=== PATIENT | female | born 1985 | race Caucasian/White ===

== ENCOUNTER 2017-09-21 17:01 | Inpatient (IN) | payer OTHER ==
[~2017-09-21] VITALS: Ht 154.9 cm; Wt 66.1 kg
[~2017-09-21 17:01] MED LIST: AZIT250T6 PO; GENT5DRO28 BOTH EYES; IBUP-1542 PO
--- NOTE | 2017-09-21 19:37 | ERD ---
ER Documentation Chief Complaint Chief Complaint BIB SELF C/O RIGHT SIDED NUMBNESS SINCE TODAY MORNING. HPI 32-year-old female presents to emergency department for complaints of numbness of over the body more than the right side it started this morning. Patient complains of neck stiffness and upper back stiffness. Patient denies any headache. Patient denies any dizziness. Patient denies any head trauma. Patient denies any changes in balance or memory. Patient denies any blurry vision. ROS All systems reviewed and are negative except as per history of present illness. Medications Home Meds Active Scripts Ibuprofen* (Motrin*) 600 Mg Tab, 600 MG PO Q6, #20 TAB Prov:RODOLFO COOK MD 05/02/16 Azithromycin* (Azithromycin*) 250 Mg Tablet, 250 MG PO DAILY, #6 TAB take 2 tab po on day 1, then 1 tab po on day 2-5 Prov:NEGRITO SINCLAIR PA-C 04/18/15 Gentamicin Sulfate* (Gentamicin Sulfate* Ophth) 0.3% - 5 Ml Drops, 1 DROP BOTH EYES Q4 for 7 Days, EA Prov:NEGRITO SINCLAIR PA-C 04/18/15 Allergies Allergies: Coded Allergies: No Known Allergy (Unverified , 08/30/16) PMhx/Soc Medical and Surgical Hx: pt denies Medical Hx, pt denies Surgical Hx History of Surgery: No Anesthesia Reaction: No Hx Neurological Disorder: No Hx Respiratory Disorders: No Hx Cardiac Disorders: No Hx Psychiatric Problems: No Hx Miscellaneous Medical Probl: No Hx Alcohol Use: No Hx Substance Use: No Hx Tobacco Use: No Smoking Status: Never smoker FmHx Family History: No coronary disease, No diabetes, No other Physical Exam Vitals Vital Signs Date Time Temp Pulse Resp B/P Pulse Ox O2 Delivery O2 Flow Rate FiO2 09/21/17 23:56 98.2 88 18 121/77 98 Room Air 09/21/17 17:08 98.9 99 18 132/74 100 Physical Exam GENERAL: The patient is well developed and appropriate for usual state of health, in no apparent distress. CHEST: Clear to auscultation bilaterally. There are no rales, wheezes or rhonchi. HEART: Regular rate and rhythm. No murmurs, clicks, rubs or gallops. No S3 or S4. ABDOMEN: Soft, nontender and nondistended. Good bowel sounds. No rebound or guarding. No gross peritonitis. No gross organomegaly or masses. No Macario sign or McBurney point tenderness. BACK: No midline or flank tenderness. EXTREMITIES: Equal pulses bilaterally. There is no peripheral clubbing, cyanosis or edema. No focal swelling or erythema. Full range of motion. Grossly neurovascularly intact. NEURO: Alert and oriented. Cranial nerves 2-12 intact. Motor strength in all 4 extremities with 5/5 strength. Sensation grossly intact. Normal speech and gait. Negative Romberg sign. Negative pronator drift. SKIN: There is no apparent rash or petechia. The skin is warm and dry. HEMATOLOGIC AND LYMPHATIC: There is no evidence of excessive bruising or lymphedema. No gross cervical, axillary, or inguinal lymphadenopathy. Result Diagram: 09/21/17 2100 09/21/17 2100 Results 24 hrs Laboratory Tests Test 09/21/17 19:30 09/21/17 21:00 Bedside Glucose 100mg/dL White Blood Count 8.510^3/ul Red Blood Count 4.4810^6/ul Hemoglobin 13.7g/dl Hematocrit 40.8% Mean Corpuscular Volume 91.1fl Mean Corpuscular Hemoglobin 30.6pg Mean Corpuscular Hemoglobin Concent 33.6g/dl Red Cell Distribution Width 12.7% Platelet Count 63309^3/UL Mean Platelet Volume 9.7fl Neutrophils % 51.9% Lymphocytes % 39.5% Monocytes % 6.9% Eosinophils % 1.2% Basophils % 0.4% Nucleated Red Blood Cells % 0.0/100WBC Neutrophils # 4.410^3/ul Lymphocytes # 3.410^3/ul Monocytes # 0.610^3/ul Eosinophils # 0.110^3/ul Basophils # 0.010^3/ul Nucleated Red Blood Cells # 0.010^3/ul Sodium Level 142mmol/L Potassium Level 4.2mmol/L Chloride Level 106mmol/L Carbon Dioxide Level 27mmol/L Anion Gap 13 Blood Urea Nitrogen 15mg/dl Creatinine 0.61mg/dl Glucose Level 97mg/dl Calcium Level 9.9mg/dl Phosphorus Level 4.1mg/dl Magnesium Level 1.9mg/dl Total Bilirubin 0.5mg/dl Direct Bilirubin 0.00mg/dl Indirect Bilirubin 0.5mg/dl Aspartate Amino Transf (AST/SGOT) 35IU/L Alanine Aminotransferase (ALT/SGPT) 52IU/L Alkaline Phosphatase 79IU/L Total Protein 8.4g/dl Albumin 4.7g/dl Globulin 3.70g/dl Albumin/Globulin Ratio 1.27 Current Medications Medications (Trade) Dose Ordered Sig/Juan Route PRN Reason Start Time Stop Time Status Last Admin Dose Admin Ondansetron HCl (Zofran Inj) 4 mg BRIDGE ORDER PRN IV NAUSEA AND/OR VOMITING 09/22/17 01:00 09/23/17 00:59 Acetaminophen (Tylenol Tab) 650 mg ER BRIDGE PRN PO MILD PAIN/FEVER 09/22/17 01:00 09/23/17 00:59 PROCEDURE: CT Brain without contrast. CLINICAL INDICATION: Numbness TECHNIQUE: Routine CT scan of the brain was performed on a high resolution multi detector scanner without intravenous contrast. One or more of the following dose reduction techniques were used: Automated exposure control; Adjustment of the mA and/or kV according to patient size; Use of iterative reconstruction technique. CTDI = 44 mGy. DLP = 720 mGy-cm. DICOM images are available. COMPARISON: CT BRAIN 08/30/2016 FINDINGS: Hemorrhage: No evidence of intracranial hemorrhage. Acute ischemic changes: No evidence of acute ischemic changes. Mass effect: None. Parenchymal volume: Within normal limits for age. Ventricular system: Concordant with parenchymal volume. Parenchymal changes : Asymmetric low attenuation changes are present involving the left parietal white matter which are new since the prior examination. Extracranial soft tissues: Unremarkable. Calvarium: No fractures. Paranasal sinuses: Visualized paranasal sinuses are clear. Mastoid air cells: Visualized mastoid air cells are clear. IMPRESSION: Asymmetric new low attenuation changes are present involving the left parietal white matter which are uncertain etiology and chronicity although new since the previous examination dated 08/30/2016. MRI of the brain with and without contrast is recommended for further evaluation. RPTAT: AADD .Jose Miguel Smith MD, MD Date Time Electronically viewed and signed by .Jose Miguel Smith MD, on 09/21/2017 20:43 .B/ CC: PETER GIRARD QUIRK SANDER I discussed this case with attending physician Dr Blackburn, recommended contact urology specialist, was able to talk to Dr.S Wang, amended MRI with and without contrast of the brain for further evaluation. PROCEDURE: MR Brain with and without contrast. CLINICAL INDICATION: Numbness. Dizziness.. TECHNIQUE: MRI brain without contrast was performed on a high-field MRI system. Sequences included sagittal T1 and FLAIR, axial T1, FLAIR, T2, diffusion and coronal GRE. After the administration of 10 cc Magnevist IV contrast material, axial and coronal T1-weighted images were performed. DICOM images are available. COMPARISON: CT brain 08/30/2016, 09/21/2017 . FINDINGS: There is 11.3 x 11.4 mm rounded discrete subcortical lesion in the left parietal white matter, mildly hypointense on T1-weighted images, heterogeneously hyperintense on T2-weighted images. There is minimal peripheral enhancement postcontrast. There is a small amount of surrounding subcortical vasogenic edema. On diffusion weighted images there is heterogeneous hypointensity with surrounding hyperintensity. There is no significant mass effect. There is a more homogeneous 6.7 x 5.6 mm well-defined lesion in the posterior left frontal lobe periventricular white matter just above the body lateral ventricles, poorly seen on T1-weighted images, homogeneously hyperintense on T2-weighted images and without signal abnormalities on diffusion weighted images. An additional slightly more ill-defined lesion in the mesial left temporal lobe cortex adjacent to the atria the left ventricle on FLAIR and T2-weighted images is present, also not well visualized on T1- weighted images with and without signal abnormality on diffusion weighted images. Neither the latter to lesions demonstrate enhancement. The ventricles and sulci are otherwise normal in size and configuration.. There is no midline shift. There are no other focal parenchymal abnormalities. There is no acute stroke on diffusion weighted images. There is no intracranial hemorrhage or abnormal extra-axial fluid collection. Flow voids are noted in the major intracranial arteries. There is normal signal intensity in the major dural venous sinuses. Visualized paranasal sinuses are clear. Foramen magnum is unremarkable. IMPRESSION: 1. Three distinct lesions in the left cerebral hemisphere. 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 Other lesions in the right frontal periventricular white matter and left temporal lobe cortex are smaller although still consistent with demyelination or ADEM. 2. No acute stroke. 3. No evidence for intracranial hemorrhage. Findings reported to AGUSTIN Girard on 09/21/2017 11:29:58 PM. RPTAT: HMVK .Shin Grace MD, MD Date Time Electronically viewed and signed by .Shin Grace MD, on 09/21/2017 23:33 .K/ CC: PETER GIRARD QUIRK SANDER Procedures/MDM Medical decision making: Patient symptoms most likely is consistent with a possible demyelinating disease versus acute disseminated encephalomyelitis (ADEM ) as seen in the MRI of the brain, there is 3 distinct lesions noted in the left cerebral hemisphere consistent with this. No acute stroke symptoms noted. No symptoms of any acute intracranial hemorrhage. I discussed this case with my attending physician, Dr. Blackburn, we both agree patient needs to be admitted to the hospital for further evaluation and management. I discussed this with the patient was advised with plan at this time. Patient is stable at this time. Departure Diagnosis: Primary Impression: Paresthesia Additional Impression: Brain lesion Condition: Fair PETER GIRARD NP Sep 21, 2017 19:37
--- NOTE | 2017-09-21 20:43 | RADRPT ---
PROCEDURE: CT Brain without contrast. CLINICAL INDICATION: Numbness TECHNIQUE: Routine CT scan of the brain was performed on a high resolution multi detector scanner without intravenous contrast. One or more of the following dose reduction techniques were used: Auto mated exposure control; Adjustment of the mA and/or kV according to patient size; Use of iterative r econstruction technique. CTDI = 44 mGy. DLP = 720 mGy-cm. DICOM images are available. COMPARISON: CT BRAIN 08/30/2016 FINDINGS: Hemorrhage: No evidence of intracranial hemorrhage. Acute ischemic changes: No evidence of acute ischemic changes. Mass effect: None. Parenchymal volume: Within normal limits for age. Ventricular system: Concordant with parenchymal volume. Parenchymal changes : Asymmetric low attenuation changes are present involving the left parietal whi te matter which are new since the prior examination. Extracranial soft tissues: Unremarkable. Calvarium: No fractures. Paranasal sinuses: Visualized paranasal sinuses are clear. Mastoid air cells: Visualized mastoid air cells are clear. IMPRESSION: Asymmetric new low attenuation changes are present involving the left parietal white matter which ar e uncertain etiology and chronicity although new since the previous examination dated 08/30/2016. MR I of the brain with and without contrast is recommended for further evaluation. RPTAT: AADD .Jose Miguel Smith MD, MD Date Time Electronically viewed and signed by .Jose Miguel Smith MD, MD on 09/21/2017 20:43 .B/
[2017-09-21 21:18] LABS: BASOPHILS % 0.4 % (0.0-2.0); EOSINOPHILS # 0.1 10^3/ul (0.0-0.5); EOSINOPHILS % 1.2 % (0.0-7.0); HEMATOCRIT 40.8 % (37.0-47.0); HEMOGLOBIN 13.7 g/dl (12.0-16.0); LYMPHOCYTES # 3.4 10^3/ul (0.8-2.9); LYMPHOCYTES % 39.5 % (15.0-51.0); MEAN CORPUSCULAR HEMOGLOBIN 30.6 pg (29.0-33.0); MEAN CORPUSCULAR HGB CONC 33.6 g/dl (32.0-37.0); MEAN CORPUSCULAR VOLUME 91.1 fl (82.0-101.0); MEAN PLATELET VOLUME 9.7 fl (7.4-10.4); MONOCYTE # 0.6 10^3/ul (0.3-0.9); MONOCYTES % 6.9 % (0.0-11.0); NEUTROPHIL # 4.4 10^3/ul (1.6-7.5); NEUTROPHILS % 51.9 % (39.0-77.0); PLATELET COUNT 268 10^3/UL (140-415); RED BLOOD COUNT 4.48 10^6/ul (4.20-5.40); RED CELL DISTRIBUTION WIDTH 12.7 % (11.5-14.5); WHITE BLOOD COUNT 8.5 10^3/ul (4.8-10.8)
[2017-09-21 21:35] LABS: ALBUMIN 4.7 g/dl (3.3-4.9); ALBUMIN/GLOBULIN RATIO 1.27; BILIRUBIN,INDIRECT 0.5 mg/dl (0-1.1); BILIRUBIN,TOTAL 0.5 mg/dl (0.2-1.3); CALCIUM 9.9 mg/dl (8.4-10.2); CREATININE 0.61 mg/dl (0.44-1.00); MAGNESIUM 1.9 mg/dl (1.7-2.5); PHOSPHORUS 4.1 mg/dl (2.5-4.9); POTASSIUM 4.2 mmol/L (3.5-5.1); TOTAL PROTEIN 8.4 g/dl (6.1-8.1)
--- NOTE | 2017-09-21 23:33 | RADRPT ---
AMENDMENT: 09/22/2017 1:22:45 AM Shin Grace Md ADDENDUM: There is an 8 mm extra-axial rounded mass at the periphery of the left Sylvian fissure abutting the calvarium. There is marked homogenous enhancement after IV contrast and no mass effect. Appearance is most consistent with a venous varix, less likely a mass such as a meningioma. PROCEDURE: MR Brain with and without contrast. CLINICAL INDICATION: Numbness. Dizziness.. TECHNIQUE: MRI brain without contrast was performed on a high-field MRI system. Sequences include d sagittal T1 and FLAIR, axial T1, FLAIR, T2, diffusion and coronal GRE. After the administration of 10 cc Magnevist IV contrast material, axial and coronal T1-weighted images were performed. DICOM images are available. COMPARISON: CT brain 08/30/2016, 09/21/2017 . FINDINGS: There is 11.3 x 11.4 mm rounded discrete subcortical lesion in the left parietal white matter, mildl y hypointense on T1-weighted images, heterogeneously hyperintense on T2-weighted images. There is mi nimal peripheral enhancement postcontrast. There is a small amount of surrounding subcortical vasoge jeanie edema. On diffusion weighted images there is heterogeneous hypointensity with surrounding hyperi ntensity. There is no significant mass effect. There is a more homogeneous 6.7 x 5.6 mm well-defined lesion in the posterior left frontal lobe periventricular white matter just above the body lateral ventricles, poorly seen on T1-weighted images, homogeneously hyperintense on T2-weighted images and without signal abnormalities on diffusion weighted images. An additional slightly more ill-defined l esion in the mesial left temporal lobe cortex adjacent to the atria the left ventricle on FLAIR and T2-weighted images is present, also not well visualized on T1-weighted images with and without signal abnormality on diffusion weighted images. Neither the latter to lesions demonstrate enhanceme nt. The ventricles and sulci are otherwise normal in size and configuration.. There is no midline shift . There are no other focal parenchymal abnormalities. There is no acute stroke on diffusion weight ed images. There is no intracranial hemorrhage or abnormal extra-axial fluid collection. Flow void s are noted in the major intracranial arteries. There is normal signal intensity in the major dural venous sinuses. Visualized paranasal sinuses are clear. Foramen magnum is unremarkable. IMPRESSION: 1. Three distinct lesions in the left cerebral hemisphere. Largest lesion is in the left parietal s ubcortical white matter with a signal characteristics most consistent with a demyelinating disease v ersus acute disseminated encephalomyelitis (ADEM). Other lesions in the right frontal periventricul ar white matter and left temporal lobe cortex are smaller although still consistent with demyelinati on or ADEM. 2. No acute stroke. 3. No evidence for intracranial hemorrhage. Findings reported to AGUSTIN Bueno on 09/21/2017 11:29:58 PM. RPTAT: HMVK .Shin Grace MD, Date Time Electronically viewed and signed by .Shin Grace MD, on 09/22/2017 01:22 .K/
--- NOTE | 2017-09-22 00:06 | QN ---
Documentation Comment I was called regarding this patient. 32yo F presents with whole body numbness and tingling, more severe on the right. Symptoms were noted by patient this morning when she woke. Last normal time was not available. Patient previously had a similar episode 1 year ago, but symptoms were more prominent on the left side at that time. CT Head report indicates patient has a new parietal lesion compared to CT from 2016 and recommended MRI Brain. I recommended patient undergo MRI Brain with and without gadolinium, as differential diagnosis includes multiple sclerosis. I advised that this could not be done as an outpatient as a multiple sclerosis exacerbation would need to be treated with IV steroids. No further consult is requested. DOT EASTMAN Sep 22, 2017 00:06
--- NOTE | 2017-09-22 00:42 | EN ---
Date/Time of Note Date/Time of Note DATE: 09/22/17 TIME: 00:42 Event Note Medicine Medicine Event Note S: This patient was evaluated by me in conjunction with the PA. Briefly, this is a 32-year-old female with a history of previous transient neurologic issues, lost to follow-up previously who is presenting with 1 day of paresthesias right worse than left. She notes that this happened approximately a year ago and there were concerns on head imaging. She was referred to neurology for outpatient follow-up. However, the symptoms improved on their own and she never followed up. She returns today with recurrence of similar symptoms. ROS/PMH/PSH/SH/FH: Reviewed. Please see PA note for further detail. O: Vital signs reviewed Const: No apparent distress, well-developed, well-nourished Head: Normocephalic, Atraumatic Eyes: Normal Conjunctiva. ENT: Normal External Ears, Nose and Mouth. Neck: No meningismus. Resp: Symmetric chest wall salguero, no audible wheezes Cardio: Deferred Abd: Non distended Skin: No petechiae or rashes Back: Deferred Ext: No cyanosis, or edema Neur: Awake and alert. No facial droop. Normal strength. Sensation grossly intact. Psych: Normal mood and affect A: Paresthesias, Concern for MS vs. ADEM MDM: The patient's presentation warrants further investigation. LABS The patient's blood work was obtained and reviewed. The patient's CBC shows no leukocytosis and no left shift. The patient is afebrile and does not appear systemically ill. I do not suspect a systemic infection. The patient is not anemic today. The patient's platelet count is unremarkable. The patient's CMP shows no signs of metabolic or electrolyte emergencies. The patient has unremarkable renal and hepatic function testing. IMAGING CT Head Asymmetric new low attenuation changes are present involving the left parietal white matter which are uncertain etiology and chronicity although new since the previous examination dated 08/30/2016. MRI of the brain with and without contrast is recommended for further evaluation. Electronically viewed and signed by .Jose Miguel Smith MD, MD on 09/21/2017 20:43 MRI Head 1. Three distinct lesions in the left cerebral hemisphere. 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 Other lesions in the right frontal periventricular white matter and left temporal lobe cortex are smaller although still consistent with demyelination or ADEM. 2. No acute stroke. 3. No evidence for intracranial hemorrhage. Electronically viewed and signed by .Shin Grace MD, MD on 09/22/2017 01:22 TREATMENT/DISPOSITION After obtaining the CT of the head that demonstrated hypoattenuating lesions, tele-neurology was called to discuss the case. They did feel that an MRI of the head should be obtained this evening. This was done that demonstrated findings that were concerning with demyelinating disease such as MS versus acute disseminated encephalomyelitis. The tele-neurologist felt that the patient required admission for further evaluation by the in-house neurology physicians via consultation. The patient will also likely require steroids. At this time, I feel that the patient requires admission for further evaluation and management. The patient will be admitted to Panel in accordance with the patient's insurance. The patient was accepted by Dr. Hidalgo at 12:30AM on September 22, 2017. Disclaimer: Inadvertent spelling and grammatical errors are likely due to EHR/ dictation software use and do not reflect on the overall quality of patient care. Note that the electronic time recorded on this note does not necessarily reflect the actual time of the patient encounter. MIGUEL MARI MD Sep 22, 2017 00:42 MIGUEL MARI MD Sep 22, 2017 00:42
[2017-09-22] MEDS ORDERED: ACETAMINOPHEN 325 MG TAB PO PRN ×3 (01:00→02:30)
[2017-09-22] MEDS ORDERED: ONDANSETRON 4 MG INJ IV PRN ×2 (01:00→02:30)
[2017-09-22 01:09] VITALS: PULSE 82; TEMP 98.2
[2017-09-22 01:30] VITALS: BP 103/60; RESP 20; Ht 154.9 cm; Wt 66.1 kg
[2017-09-22] MEDS ORDERED: NACL 0.9% 3 ML SYG IV SCH (02:30)
[2017-09-22] MEDS ORDERED: SOD CHLORIDE 0.9% 1,000 ML IV ONE (05:00)
[2017-09-22 05:56] LABS: BASOPHILS % 0.6 % (0.0-2.0); EOSINOPHILS # 0.1 10^3/ul (0.0-0.5); EOSINOPHILS % 1.5 % (0.0-7.0); HEMATOCRIT 37.6 % (37.0-47.0); HEMOGLOBIN 12.7 g/dl (12.0-16.0); LYMPHOCYTES # 2.7 10^3/ul (0.8-2.9); LYMPHOCYTES % 37.2 % (15.0-51.0); MEAN CORPUSCULAR HEMOGLOBIN 30.3 pg (29.0-33.0); MEAN CORPUSCULAR HGB CONC 33.8 g/dl (32.0-37.0); MEAN CORPUSCULAR VOLUME 89.7 fl (82.0-101.0); MONOCYTE # 0.6 10^3/ul (0.3-0.9); MONOCYTES % 8.7 % (0.0-11.0); NEUTROPHIL # 3.7 10^3/ul (1.6-7.5); NEUTROPHILS % 51.9 % (39.0-77.0); PLATELET COUNT 270 10^3/UL (140-415); RED BLOOD COUNT 4.19 10^6/ul (4.20-5.40); RED CELL DISTRIBUTION WIDTH 13.2 % (11.5-14.5); WHITE BLOOD COUNT 7.1 10^3/ul (4.8-10.8)
[2017-09-22] MEDS ORDERED: PANTOPRAZOLE 40 MG INJ IV SCH (06:00)
[2017-09-22 06:31] LABS: ALBUMIN 4.2 g/dl (3.3-4.9); ALBUMIN/GLOBULIN RATIO 1.23; BILIRUBIN,INDIRECT 0.9 mg/dl (0-1.1); BILIRUBIN,TOTAL 0.9 mg/dl (0.2-1.3); CALCIUM 9.6 mg/dl (8.4-10.2); CHOL/HDL RATIO 3.8 RATIO; CREATININE 0.59 mg/dl (0.44-1.00); MAGNESIUM 1.9 mg/dl (1.7-2.5); POTASSIUM 3.9 mmol/L (3.5-5.1); TOTAL PROTEIN 7.6 g/dl (6.1-8.1)
[2017-09-22 06:50] LABS: THYROID STIMULATING HORMONE 3.19 MIU/L (0.465-4.680)
[2017-09-22 08:00] VITALS: BP 115/65; RESP 18
[2017-09-22] MEDS ORDERED: METHYLPRED. NA SUCC 1,000 MG in DEXTROSE 5% 50 ML IVPB SCH (09:00)
--- NOTE | 2017-09-22 09:58 | HP ---
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 MRI of the brain: Three distinct lesions in the left cerebral hemisphere. 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 Other lesions in the right frontal periventricular white matter and left temporal lobe cortex are smaller although still consistent with demyelination or ADEM. Current time will start the patient on Solu-Medrol 1000 mg every 24 hours x 5 days. Will consult neurology. Patient may need a lumbar tap for further diagnostic purposes. She also may need more imaging of the spine however we will defer further testing to neurology. 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 She states that she also feels slightly weak in her right upper extremity though she is able to move around she was unable to hold her phone up. She states that a similar yet more exacerbating episode happened approximately a year ago where she experienced numbness however also had problems ambulating. At that time the CAT scan was negative and she was sent home and advised to follow-up with a neurologist but she never was able to. Patient denies any headache. Patient denies any dizziness. Patient denies any head trauma. Patient denies any changes in her memory. Patient denies any blurry vision. Allergies: NKDA Medications: See HARLEY ALVAREZ Const: As per HPI Eyes : No pain discharge or redness or change in visual acuity ENT: No pain, sore throat, congestion, congestion, dysphagia or discharge Respiratory: No shortness of breath, cough, sputum, wheezing, or pleuritic pain Cardiovascular: No chest pain, palpitation, PND, or edema GI : no change in appetite, abdominal pain, nausea, vomiting, diarrhea, constipation, or change in the color his stool Genitourinary: No dysuria, hematuria, flank pain , discharge or CVA tenderness Musculoskeletal: No joint pain, back pain, neck pain, restricted range of motion in neck or joints Skin: No rash, bruising or hives Neuro: As per HPI Endocrine: No polyuria, polydipsia, temperature intolerance Psych: No hallucination, depression, anxiety or suicidal ideation PMH/Family/Social Past Medical History Endometriosis Past Surgical History Past Surgical Hx: no surgical history Family History Significant Family History: no pertinent family hx Social History Alcohol Use: none Smoking Status: Never smoker Drug Use: none Exam/Review of Systems Vital Signs Vitals Vital Signs Date Time Temp Pulse Resp B/P Pulse Ox O2 Delivery O2 Flow Rate FiO2 09/22/17 08:00 97.8 82 18 115/65 99 09/22/17 01:09 Room Air Intake and Output 09/21/17 09/21/17 09/22/17 14:59 22:59 06:59 Intake Total 240 ml Balance 240 ml Exam Exam General: It is a well-developed female in no acute distress HEENT: Atraumatic, normocephalic. The pupils are equal, round and reactive. Extraocular motor are intact Neck: Supple with full range of motion. No rigidity or meningismus Chest: Nontender Lungs: Clear to auscultation bilaterally no crackles rales or wheezing Heart: Normal S1-S2, Regular rhythm and rate. No murmur, S3, or S4 Abdomen: Soft , nontender, nondistended , bowel sounds are present. No guarding no rebound tenderness , No masses or organomegaly. No costovertebral temporal angle mass Extremities: Normal to inspection, no edema no cyanosis Neurologic: Normal mental status, speech normal, cranial nerves II through XII are intact, motor and sensory are intact, strength 5 out of 5 in bilateral upper and lower extremities, gait was not assessed. Additional Comments PROCEDURE: CT Brain without contrast. CLINICAL INDICATION: Numbness TECHNIQUE: Routine CT scan of the brain was performed on a high resolution multi detector scanner without intravenous contrast. One or more of the following dose reduction techniques were used: Automated exposure control; Adjustment of the mA and/or kV according to patient size; Use of iterative reconstruction technique. CTDI = 44 mGy. DLP = 720 mGy-cm. DICOM images are available. COMPARISON: CT BRAIN 08/30/2016 FINDINGS: Hemorrhage: No evidence of intracranial hemorrhage. Acute ischemic changes: No evidence of acute ischemic changes. Mass effect: None. Parenchymal volume: Within normal limits for age. Ventricular system: Concordant with parenchymal volume. Parenchymal changes : Asymmetric low attenuation changes are present involving the left parietal white matter which are new since the prior examination. Extracranial soft tissues: Unremarkable. Calvarium: No fractures. Paranasal sinuses: Visualized paranasal sinuses are clear. Mastoid air cells: Visualized mastoid air cells are clear. IMPRESSION: Asymmetric new low attenuation changes are present involving the left parietal white matter which are uncertain etiology and chronicity although new since the previous examination dated 08/30/2016. MRI of the brain with and without contrast is recommended for further evaluation. RPTAT: AADD .Jose Miguel Smith MD, MD Date Time Electronically viewed and signed by .Jose Miguel Smith MD, MD on 09/21/2017 20:43 .B/ CC: [facility] AMENDMENT: 09/22/2017 1:22:45 AM Shin Grace Md ADDENDUM: There is an 8 mm extra-axial rounded mass at the periphery of the left Sylvian fissure abutting the calvarium. There is marked homogenous enhancement after IV contrast and no mass effect. Appearance is most consistent with a venous varix, less likely a mass such as a meningioma. PROCEDURE: MR Brain with and without contrast. CLINICAL INDICATION: Numbness. Dizziness.. TECHNIQUE: MRI brain without contrast was performed on a high-field MRI system. Sequences included sagittal T1 and FLAIR, axial T1, FLAIR, T2, diffusion and coronal GRE. After the administration of 10 cc Magnevist IV contrast material, axial and coronal T1-weighted images were performed. DICOM images are available. COMPARISON: CT brain 08/30/2016, 09/21/2017 . FINDINGS: There is 11.3 x 11.4 mm rounded discrete subcortical lesion in the left parietal white matter, mildly hypointense on T1-weighted images, heterogeneously hyperintense on T2-weighted images. There is minimal peripheral enhancement postcontrast. There is a small amount of surrounding subcortical vasogenic edema. On diffusion weighted images there is heterogeneous hypointensity with surrounding hyperintensity. There is no significant mass effect. There is a more homogeneous 6.7 x 5.6 mm well-defined lesion in the posterior left frontal lobe periventricular white matter just above the body lateral ventricles, poorly seen on T1-weighted images, homogeneously hyperintense on T2-weighted images and without signal abnormalities on diffusion weighted images. An additional slightly more ill-defined lesion in the mesial left temporal lobe cortex adjacent to the atria the left ventricle on FLAIR and T2-weighted images is present, also not well visualized on T1- weighted images with and without signal abnormality on diffusion weighted images. Neither the latter to lesions demonstrate enhancement. The ventricles and sulci are otherwise normal in size and configuration.. There is no midline shift. There are no other focal parenchymal abnormalities. There is no acute stroke on diffusion weighted images. There is no intracranial hemorrhage or abnormal extra-axial fluid collection. Flow voids are noted in the major intracranial arteries. There is normal signal intensity in the major dural venous sinuses. Visualized paranasal sinuses are clear. Foramen magnum is unremarkable. IMPRESSION: 1. Three distinct lesions in the left cerebral hemisphere. 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 Other lesions in the right frontal periventricular white matter and left temporal lobe cortex are smaller although still consistent with demyelination or ADEM. 2. No acute stroke. 3. No evidence for intracranial hemorrhage. Findings reported to AGUSTIN Bueno on 09/21/2017 11:29:58 PM. RPTAT: HMVK .Shin Grace MD, Date Time Electronically viewed and signed by .Shin Grace MD, on 09/22/2017 01:22 .K/ CC: [facility] Labs Result Diagram: 09/22/1744609/22/17446 Medications Medications Current Medications Acetaminophen (Tylenol Tab) 650 mg Q6H PRN PO PAIN AND OR ELEVATED TEMP Last administered on 09/22/17 02:17; Admin Dose 650 MG; Start 09/22/17 at 02:30 Ondansetron HCl (Zofran Inj) 4 mg Q6H PRN IV NAUSEA AND/OR VOMITING; Start at 02:30 Acetaminophen (Tylenol Tab) 650 mg Q6H PRN PO PAIN LEVEL 1-3 OR FEVER; Start 09/22/17 at 02:30 Pantoprazole 40 mg 40 mg DAILY@06 IV Last administered on 09/22/17 05:18; Admin Dose 40 MG; Start 09/22/17 at 06:00 Methylprednisolone Sodium Succinate/ Dextrose (Solu-Medrol/D5W) 50 ml @ 100 mls /hr DAILY IVPB Last administered on 09/22/17 08:53; Admin Dose 100 MLS/HR; Start 09/22/17 at 09:00; Stop 09/27/17 at 08:59 Influenza Virus Vaccine (Fluzone) 0.5 ml ONCE ONCE IM* ; Start 09/23/17 at 09: 00; Stop 09/23/17 at 09:01 MARCUS ROBERT Sep 22, 2017 09:58
--- NOTE | 2017-09-22 13:22 | CONS ---
Date/Time of Note Date/Time of Note DATE: 09/22/17 TIME: 13:14 Assessment/Plan Assessment/Plan Chief Complaint/Hosp Course 32 yo female with history of prior left sided numbness lasting several weeks admitted with UE parasthesias and right sided weakness. MRI shows 3 lesions left parietal subcortical region, periventricular region. right frontal and left temporal There evidence of dissemination of lesions in space per Tovar's criteria. Reviewed imaging with patient I suspect she has multiple sclerosis. Recommendations: IV Steroids may dose up to 3 days 1 g Solumedrol, protonix MRI Cervical and Thoracic Spine with and without contrast Lumbar Puncture- CSF Cell Count, Protein, Glucose, Oligoclonal Bands, Paired IgG Index, GIO, CSF cultures PT/OT eval DVT ppx will follow advised patient she will require outpatient neurology follow up to begin disease modifying therapy to help prevent further relapses Problems: Consultation Date/Type/Reason Admit Date/Time Sep 22, 2017 at 00:41 Date of Consultation: Sep 22, 2017 Type of Consultation: Neurology Reason for Consultation evaluation for MS Referring Provider: MARCUS ROBERT Hx of Present Illness 32 yo female with history of left sided weakness over a year ago that had lasted 3 weeks and resolved, p/w numbness throughout her body and tingling parasthesias in UE and right arm and leg weakness started yesterday morning upon awakening. When she had prior sx over a year ago she came to the ER had a noncontrast Head CT and was sent home to fu with PCP, never followed up. She denies visual c/o, no facial numbness, no falls or balance issues, no bowel bladder issues. MRI suggestive of demyelinating process, She received 1 dose of Solumedrol with no change in her sx. parasthesias right sided numbness Past Medical History Medical History: no pertinent history Past Surgical History Past Surgical Hx: no surgical history Social History Alcohol Use: none Smoking Status: Never smoker Drug Use: none Exam/Review of Systems Vital Signs Vitals Vital Signs Date Time Temp Pulse Resp B/P Pulse Ox O2 Delivery O2 Flow Rate FiO2 09/22/17 08:00 97.8 82 18 115/65 99 09/22/17 01:09 Room Air Intake and Output 09/21/17 09/21/17 09/22/17 14:59 22:59 06:59 Intake Total 240 ml Balance 240 ml Exam Constitutional: alert, oriented, well developed Neurological: HAND FORMER II-XII intact, DTR's symmetric (right arm drift and right leg drift mild 5-/5 weakness decreased sensation to right arm and leg), nl mental status, nl speech Results Result Diagram: 09/22/177 09/22/17446 Results 24 hrs Laboratory Tests Test 09/21/17 19:30 09/21/17 21:00 09/22/17 04:47 Bedside Glucose 100 White Blood Count 8.5 7.1 Red Blood Count 4.48 4.19 L Hemoglobin 13.7 12.7 Hematocrit 40.8 37.6 Mean Corpuscular Volume 91.1 89.7 Mean Corpuscular Hemoglobin 30.6 30.3 Mean Corpuscular Hemoglobin Concent 33.6 33.8 Red Cell Distribution Width 12.7 13.2 Platelet Count 268 270 Mean Platelet Volume 9.7 10.0 Neutrophils % 51.9 51.9 Lymphocytes % 39.5 37.2 Monocytes % 6.9 8.7 Eosinophils % 1.2 1.5 Basophils % 0.4 0.6 Nucleated Red Blood Cells % 0.0 0.0 Neutrophils # 4.4 3.7 Lymphocytes # 3.4 H 2.7 Monocytes # 0.6 0.6 Eosinophils # 0.1 0.1 Basophils # 0.0 0.0 Nucleated Red Blood Cells # 0.0 0.0 Sodium Level 142 143 Potassium Level 4.2 3.9 Chloride Level 106 105 Carbon Dioxide Level 27 29 Anion Gap 13 13 Blood Urea Nitrogen 15 16 Creatinine 0.61 0.59 Glucose Level 97 91 Calcium Level 9.9 9.6 Phosphorus Level 4.1 Magnesium Level 1.9 1.9 Total Bilirubin 0.5 0.9 Direct Bilirubin 0.00 0.00 Indirect Bilirubin 0.5 0.9 Aspartate Amino Transf (AST/SGOT) 35 31 Alanine Aminotransferase (ALT/SGPT) 52 46 Alkaline Phosphatase 79 59 Total Protein 8.4 H 7.6 Albumin 4.7 4.2 Globulin 3.70 H 3.40 H Albumin/Globulin Ratio 1.27 1.23 Hemoglobin A1c 5.6 Triglycerides Level 88 Cholesterol Level 183 LDL Cholesterol, Calculated 118 HDL Cholesterol 47 Cholesterol/HDL Ratio 3.8 Thyroid Stimulating Hormone (TSH) 3.190 Medications Medications Current Medications Acetaminophen (Tylenol Tab) 650 mg Q6H PRN PO PAIN AND OR ELEVATED TEMP Last administered on 09/22/17 02:17; Admin Dose 650 MG; Start 09/22/17 at 02:30 Ondansetron HCl (Zofran Inj) 4 mg Q6H PRN IV NAUSEA AND/OR VOMITING; Start at 02:30 Acetaminophen (Tylenol Tab) 650 mg Q6H PRN PO PAIN LEVEL 1-3 OR FEVER; Start 09/22/17 at 02:30 Pantoprazole 40 mg 40 mg DAILY@06 IV Last administered on 09/22/17 05:18; Admin Dose 40 MG; Start 09/22/17 at 06:00 Methylprednisolone Sodium Succinate/ Dextrose (Solu-Medrol/D5W) 50 ml @ 100 mls /hr DAILY IVPB Last administered on 09/22/17 08:53; Admin Dose 100 MLS/HR; Start 09/22/17 at 09:00; Stop 09/27/17 at 08:59 Influenza Virus Vaccine (Fluzone) 0.5 ml ONCE ONCE IM* ; Start 09/23/17 at 09: 00; Stop 09/23/17 at 09:01 SANTI BEAULIEU MD Sep 22, 2017 13:22
[2017-09-22 14:00] VITALS: BP 121/73; RESP 16
[2017-09-22 15:52] LABS: INR 1.02; PROTIME 13.4 Sec (12.2-14.2)
[2017-09-22 15:53] LABS: PARTIAL THROMBOPLASTIN TIME 28.8 Sec (25.0-35.0)
--- NOTE | 2017-09-22 18:02 | PN ---
Date/Time of Note Date/Time of Note DATE: 09/22/17 TIME: 17:58 Assessment/Plan VTE Prophylaxis VTE Prophylaxis Intervention: SCD's Lines/Catheters IV [facility]from [facility] Saline Lock Urinary Cath still in place: No Assessment/Plan Assessment/Plan 1. Left sided numbness secondary to demyelinating disease - Neurology on board and recommendations appreciated. Suspecting MS and recommending MRI Cervical and Thoracic Spine with and without contrast - Lumbar Puncture- CSF Cell Count, Protein, Glucose, Oligoclonal Bands, Paired IgG Index, GIO, CSF cultures - Solumedrol 1gm x3 - PT/OT - Will require outpatient neurology follow up to begin disease modifying therapy to help prevent further relapses 2. endometriosis - Stable, follow-up as an outpatient with DIRECTOR GIFT 3. Disposition - Awaiting results of imaging and LP - PT/OT evaluation Subjective 24 Hr Interval Summary Free Text/Dictation Patient still experiencing worsening numbness on left side of body which she feels worsens since she is laying in bed. No new complaints. Exam/Review of Systems Vital Signs Vitals Vital Signs Date Time Temp Pulse Resp B/P Pulse Ox O2 Delivery O2 Flow Rate FiO2 09/22/17 08:00 97.8 82 18 115/65 99 09/22/17 01:09 Room Air Intake and Output 09/21/17 09/21/17 09/22/17 14:59 22:59 06:59 Intake Total 240 ml Balance 240 ml Exam General: in no acute distress HEENT: Atraumatic, normocephalic. The pupils are equal, round and reactive. Extraocular motor are intact Neck: Supple with full range of motion Lungs: Clear to auscultation bilaterally no crackles rales or wheezing Heart: Normal S1-S2, Regular rhythm and rate. No murmur, S3, or S4 Abdomen: Soft , nontender, nondistended , bowel sounds are present. No guarding no rebound tenderness , Extremities: Normal to inspection, no edema no cyanosis Neurologic: Normal mental status, speech normal, cranial nerves II through XII are intact, motor and sensory are intact, strength 5 out of 5 in bilateral upper and lower extremities, Results Result Diagram: 09/22/17 0447 09/22/17 0447 Results 24 hrs Laboratory Tests Test 09/21/17 19:30 09/21/17 21:00 09/22/17 04:47 09/22/17 15:00 Bedside Glucose 100 White Blood Count 8.5 7.1 Red Blood Count 4.48 4.19 L Hemoglobin 13.7 12.7 Hematocrit 40.8 37.6 Mean Corpuscular Volume 91.1 89.7 Mean Corpuscular Hemoglobin 30.6 30.3 Mean Corpuscular Hemoglobin Concent 33.6 33.8 Red Cell Distribution Width 12.7 13.2 Platelet Count 268 270 Mean Platelet Volume 9.7 10.0 Neutrophils % 51.9 51.9 Lymphocytes % 39.5 37.2 Monocytes % 6.9 8.7 Eosinophils % 1.2 1.5 Basophils % 0.4 0.6 Nucleated Red Blood Cells % 0.0 0.0 Neutrophils # 4.4 3.7 Lymphocytes # 3.4 H 2.7 Monocytes # 0.6 0.6 Eosinophils # 0.1 0.1 Basophils # 0.0 0.0 Nucleated Red Blood Cells # 0.0 0.0 Sodium Level 142 143 Potassium Level 4.2 3.9 Chloride Level 106 105 Carbon Dioxide Level 27 29 Anion Gap 13 13 Blood Urea Nitrogen 15 16 Creatinine 0.61 0.59 Glucose Level 97 91 Calcium Level 9.9 9.6 Phosphorus Level 4.1 Magnesium Level 1.9 1.9 Total Bilirubin 0.5 0.9 Direct Bilirubin 0.00 0.00 Indirect Bilirubin 0.5 0.9 Aspartate Amino Transf (AST/SGOT) 35 31 Alanine Aminotransferase (ALT/SGPT) 52 46 Alkaline Phosphatase 79 59 Total Protein 8.4 H 7.6 Albumin 4.7 4.2 Globulin 3.70 H 3.40 H Albumin/Globulin Ratio 1.27 1.23 Hemoglobin A1c 5.6 Triglycerides Level 88 Cholesterol Level 183 LDL Cholesterol, Calculated 118 HDL Cholesterol 47 Cholesterol/HDL Ratio 3.8 Thyroid Stimulating Hormone (TSH) 3.190 Prothrombin Time 13.4 Prothrombin Time Ratio 1.0 INR International Normalized Ratio 1.02 Activated Partial Thromboplast Time 28.8 Medications Medications Current Medications Ondansetron HCl (Zofran Inj) 4 mg Q6H PRN IV NAUSEA AND/OR VOMITING; Start at 02:30 Acetaminophen (Tylenol Tab) 650 mg Q6H PRN PO PAIN LEVEL 1-3 OR FEVER; Start 09/22/17 at 02:30 Influenza Virus Vaccine 0.5 ml 0.5 ml ONCE ONCE IM* ; Start 09/23/17 at 09:00; Stop 09/23/17 at 09:01 Methylprednisolone Sodium Succinate/ Dextrose (Solu-Medrol/D5W) 50 ml @ 100 mls /hr DAILY IVPB ; Start 09/23/17 at 09:00; Stop 09/25/17 at 08:59 Pantoprazole (Protonix Tab) 40 mg DAILY@06 PO ; Start 09/23/17 at 06:00 EVANGELIST ESPAÑA MD Sep 22, 2017 18:02
[2017-09-22 20:00] VITALS: BP 110/65; RESP 17; RESP 18
[2017-09-22] MEDS ORDERED: ZOLPIDEM 5 MG TAB PO ONE (21:54)
--- NOTE | 2017-09-22 22:26 | RADRPT ---
PROCEDURE: MRI CERVICAL SPINE WITH CONTRAST CLINICAL INDICATION: 32-year-old female with dizziness and right-sided numbness. The patient had a n abnormal MRI of the brain suggesting demyelinating process. TECHNIQUE: An MRI of the cervical spine was performed on a GE Signa HDxt 3T scanner utilizing the following sequences: Sagittal T1, sagittal T2, sagittal STIR, axial T2 and axial T1 images. Followi ng this, axial T1 with accentuation and sagittal T1-weighted images were obtained after the administ ration of 10 cc of Magnevist contrast material. The images reviewed on a PACS workstation. COMPARISON: MRI brain September 21, 2017. FINDINGS: There is straightening of the normal cervical lordosis. The cervical vertebral bodies and disk spac es have normal heights, signal intensities and anatomic alignment. At C2-3 the disc space has a normal appearance. There is no significant central or foraminal stenosi s. At C3-4 there is a mild posterior disk-osteophyte complex projecting approximately 2 mm beyond the p osterior margin. There is no significant foraminal stenosis. At C4-5 there is a mild posterior disk-osteophyte complex projecting approximately 2 mm beyond the p osterior margin. There are mild right uncovertebral degenerative changes resulting in mild right for aminal stenosis. At C5-6 there is a mild posterior disk-osteophyte complex projecting approximately 2 mm beyond the p osterior margin. There are mild bilateral uncovertebral degenerative changes resulting in minimal bi lateral foraminal stenosis. At C6-7 there is minimal posterior disk-osteophyte complex projecting 1 mm beyond the posterior rakan in. There are mild bilateral uncovertebral degenerative changes without significant foraminal stenos is. At C7-T1 the disc space has a normal appearance. There is no significant central or foraminal stenos is. The cervical cord has a normal contour and signal intensity throughout. There is no evidence for ab normal enhancement. There is no evidence for cord compression. IMPRESSION: 1. Straightening of the normal cervical lordosis. 2. Minimal cervical spondylosis. 3. No MR evidence for demyelinating disease within the cervical cord. .Ezequiel Brown MD, MD Date Time Electronically viewed and signed by .Ezequiel Brown MD, on 09/22/2017 22:26 .Regine/
--- NOTE | 2017-09-22 22:33 | RADRPT ---
PROCEDURE: MRI THORACIC SPINE WITH CONTRAST CLINICAL INDICATION: 32-year-old female with dizziness and bilateral extremity paresthesias. The pa tient had an abnormal MRI of the brain suggesting demyelinating process. TECHNIQUE: An MRI of the thoracic spine was performed on a GE Signa HDxt 3T scanner utilizing the following sequences: Sagittal T1, sagittal T2, sagittal STIR, axial T2 and axial T1 images. Follow ing this, axial T1 sagittal T1-weighted images with fat saturation were obtained after the administr ation of 10 cc of Magnevist contrast material. The images reviewed on a PACS workstation. COMPARISON: MRI cervical spine obtained concurrently. FINDINGS: The thoracic vertebral bodies and disk spaces have normal heights, signal intensities and anatomic a lignment. There is no significant central or foraminal stenosis. The thoracic cord has a normal contour and signal intensity throughout. There is no evidence for ab normal enhancement. There is no evidence for cord compression. The conus medullaris ends normally at the lower T12 level and is without evidence for abnormal sign al intensity or enhancement. IMPRESSION: 1. Unremarkable MRI of the thoracic spine. 2. No MR evidence for demyelinating disease within the thoracic cord. .Ezequiel Brown MD, MD Date Time Electronically viewed and signed by .Ezequiel Brown MD, on 09/22/2017 22:32 .M/
[2017-09-23 02:00] VITALS: BP 99/55; RESP 17
[2017-09-23 05:17] LABS: BASOPHILS % 0.1 % (0.0-2.0); HEMATOCRIT 37.9 % (37.0-47.0); HEMOGLOBIN 12.9 g/dl (12.0-16.0); LYMPHOCYTES # 0.9 10^3/ul (0.8-2.9); LYMPHOCYTES % 7.4 % (15.0-51.0); MEAN CORPUSCULAR HEMOGLOBIN 30.3 pg (29.0-33.0); MEAN PLATELET VOLUME 10.1 fl (7.4-10.4); MONOCYTE # 0.3 10^3/ul (0.3-0.9); MONOCYTES % 2.6 % (0.0-11.0); NEUTROPHIL # 11.2 10^3/ul (1.6-7.5); NEUTROPHILS % 89.6 % (39.0-77.0); PLATELET COUNT 269 10^3/UL (140-415); RED BLOOD COUNT 4.26 10^6/ul (4.20-5.40); RED CELL DISTRIBUTION WIDTH 12.5 % (11.5-14.5); WHITE BLOOD COUNT 12.5 10^3/ul (4.8-10.8)
[2017-09-23 05:32] LABS: ALBUMIN 4.3 g/dl (3.3-4.9); CALCIUM 9.4 mg/dl (8.4-10.2); CREATININE 0.53 mg/dl (0.44-1.00); MAGNESIUM 1.9 mg/dl (1.7-2.5); PHOSPHORUS 3.6 mg/dl (2.5-4.9)
[2017-09-23] MEDS: PANTOPRAZOLE (EC) 40 MG TAB PO SCH (06:02)
[2017-09-23 08:00] VITALS: BP 111/69; RESP 19
[2017-09-23] MEDS: METHYLPRED. NA SUCC 1,000 MG in DEXTROSE 5% 50 ML IVPB SCH (08:45)
[2017-09-23] MEDS ORDERED: INFLUENZA VIRUS VACCINE 0.5 ML (DISPENSING) IM* ONE (09:00)
[2017-09-23 14:00] VITALS: BP 111/67; RESP 16
[2017-09-23] MEDS ORDERED: LORAZEPAM 2 MG INJ IV ONE (14:00)
--- NOTE | 2017-09-23 14:43 | CONS ---
Date/Time of Note Date/Time of Note DATE: 09/23/17 TIME: 14:42 Consult Date/Type/Reason Admit Date/Time Sep 22, 2017 at 00:41 Initial Consult Date 09/22/17 Type of Consultation: Neurology Reason for Consultation MS Ordering Provider: MARCUS ROBERT Subjective parasthesias in UE still c/o weakness right side Objective Vital Signs Date Time Temp Pulse Resp B/P Pulse Ox O2 Delivery O2 Flow Rate FiO2 09/23/17 08:00 97.7 98 19 111/69 98 09/22/17 01:09 Room Air Intake and Output 09/22/17 09/22/17 09/23/17 15:00 23:00 07:00 Intake Total 1050 ml 800 ml 440 ml Output Total 750 ml 2 ml Balance 1050 ml 50 ml 438 ml Exam Constitutional: alert, oriented, well developed Neurological: LICENSED PSYCHOLOGIST MANAGER II-XII intact, DTR's symmetric (right arm drift and right leg drift mild 5-/5 weakness decreased sensation to right arm and leg), nl mental status, nl speech Results/Medications Result Diagram: 09/23/17 0430 09/23/17 0430 Results 24 hrs Laboratory Tests Test 09/22/17 15:00 09/23/17 04:28 09/23/17 04:30 Prothrombin Time 13.4 Prothrombin Time Ratio 1.0 INR International Normalized Ratio 1.02 Activated Partial Thromboplast Time 28.8 Serum HCG, Qualitative NEGATIVE White Blood Count 12.5 #H Red Blood Count 4.26 Hemoglobin 12.9 Hematocrit 37.9 Mean Corpuscular Volume 89.0 Mean Corpuscular Hemoglobin 30.3 Mean Corpuscular Hemoglobin Concent 34.0 Red Cell Distribution Width 12.5 Platelet Count 269 Mean Platelet Volume 10.1 Neutrophils % 89.6 H Lymphocytes % 7.4 L Monocytes % 2.6 Eosinophils % 0.0 Basophils % 0.1 Nucleated Red Blood Cells % 0.0 Neutrophils # 11.2 H Lymphocytes # 0.9 Monocytes # 0.3 Eosinophils # 0.0 Basophils # 0.0 Nucleated Red Blood Cells # 0.0 Sodium Level 144 Potassium Level 4.0 Chloride Level 108 Carbon Dioxide Level 24 Anion Gap 16 Blood Urea Nitrogen 14 Creatinine 0.53 Glucose Level 152 Calcium Level 9.4 Phosphorus Level 3.6 Magnesium Level 1.9 Albumin 4.3 Medications Current Medications Ondansetron HCl (Zofran Inj) 4 mg Q6H PRN IV NAUSEA AND/OR VOMITING; Start at 02:30 Acetaminophen 650 mg 650 mg Q6H PRN PO PAIN LEVEL 1-3 OR FEVER; Start at 02:30 Methylprednisolone Sodium Succinate/ Dextrose (Solu-Medrol/D5W) 50 ml @ 100 mls /hr DAILY IVPB Last administered on 09/23/17 08:45; Admin Dose 100 MLS/HR; Start 09/23/17 at 09:00; Stop 09/25/17 at 08:59 Pantoprazole (Protonix Tab) 40 mg DAILY@06 PO Last administered on 09/23/17 06:02; Admin Dose 40 MG; Start 09/23/17 at 06:00 Assessment/Plan Chief Complaint/Hosp Course 32 yo female with history of prior left sided numbness lasting several weeks admitted with UE parasthesias and right sided weakness. MRI shows 3 lesions left parietal subcortical region, periventricular region. right frontal and left temporal There evidence of dissemination of lesions in space per Tovar's criteria. Reviewed imaging with patient I suspect she has multiple sclerosis. Recommendations: IV Steroids may dose up to 3 days 1 g Solumedrol, protonix MRI Cervical and Thoracic Spine with and without contrast- resulted normal Lumbar Puncture- CSF Cell Count, Protein, Glucose, Oligoclonal Bands, Paired IgG Index, GIO, CSF cultures PT/OT eval DVT ppx will follow advised patient she will require outpatient neurology follow up to begin disease modifying therapy to help prevent further relapses Problems: SANTI BEAULIEU MD Sep 23, 2017 14:43
--- NOTE | 2017-09-23 15:49 | PN ---
Date/Time of Note Date/Time of Note DATE: 09/23/17 TIME: 15:47 Assessment/Plan VTE Prophylaxis VTE Prophylaxis Intervention: SCD's Lines/Catheters [facility] Saline Lock Urinary Cath still in place: No Assessment/Plan Chief Complaint/Hosp Course Assessment/Plan 1. Left sided numbness secondary to demyelinating disease - Neurology on board and recommendations appreciated. Suspecting MS and recommending MRI Cervical and Thoracic Spine with and without contrast - Lumbar Puncture- CSF Cell Count, Protein, Glucose, Oligoclonal Bands, Paired IgG Index, GIO, CSF cultures - Solumedrol 1gm x3, up to 5 if patient agrees. - PT/OT - Will require outpatient neurology follow up to begin disease modifying therapy to help prevent further relapses 2. 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 Disposition - Awaiting results of LP - PT/OT evaluation Problems: Subjective 24 Hr Interval Summary Free Text/Dictation no acute change, mild improvement in strength and numbness Exam/Review of Systems Vital Signs Vitals Vital Signs Date Time Temp Pulse Resp B/P Pulse Ox O2 Delivery O2 Flow Rate FiO2 09/23/17 14:00 98.3 94 16 111/67 98 09/22/17 01:09 Room Air Intake and Output 09/22/17 09/22/17 09/23/17 15:00 23:00 07:00 Intake Total 1050 ml 800 ml 440 ml Output Total 750 ml 2 ml Balance 1050 ml 50 ml 438 ml Exam General: in no acute distress HEENT: Atraumatic, normocephalic. The pupils are equal, round and reactive. Extraocular motor are intact Neck: Supple with full range of motion Lungs: Clear to auscultation bilaterally no crackles rales or wheezing Heart: Normal S1-S2, Regular rhythm and rate. No murmur, S3, or S4 Abdomen: Soft , nontender, nondistended , bowel sounds are present. No guarding no rebound tenderness , Extremities: Normal to inspection, no edema no cyanosis Neurologic: Normal mental status, speech normal, cranial nerves II through XII are intact, sensory diminished in all extremities, strength 5 out of 5 in bilateral upper and lower extremities, Results Result Diagram: 09/23/17 04309/23/17 043 Results 24 hrs Laboratory Tests Test 09/23/17 04:28 09/23/17 04:30 Serum HCG, Qualitative NEGATIVE White Blood Count 12.5 #H Red Blood Count 4.26 Hemoglobin 12.9 Hematocrit 37.9 Mean Corpuscular Volume 89.0 Mean Corpuscular Hemoglobin 30.3 Mean Corpuscular Hemoglobin Concent 34.0 Red Cell Distribution Width 12.5 Platelet Count 269 Mean Platelet Volume 10.1 Neutrophils % 89.6 H Lymphocytes % 7.4 L Monocytes % 2.6 Eosinophils % 0.0 Basophils % 0.1 Nucleated Red Blood Cells % 0.0 Neutrophils # 11.2 H Lymphocytes # 0.9 Monocytes # 0.3 Eosinophils # 0.0 Basophils # 0.0 Nucleated Red Blood Cells # 0.0 Sodium Level 144 Potassium Level 4.0 Chloride Level 108 Carbon Dioxide Level 24 Anion Gap 16 Blood Urea Nitrogen 14 Creatinine 0.53 Glucose Level 152 Calcium Level 9.4 Phosphorus Level 3.6 Magnesium Level 1.9 Albumin 4.3 Medications Medications Current Medications Ondansetron HCl (Zofran Inj) 4 mg Q6H PRN IV NAUSEA AND/OR VOMITING; Start at 02:30 Acetaminophen 650 mg 650 mg Q6H PRN PO PAIN LEVEL 1-3 OR FEVER; Start at 02:30 Methylprednisolone Sodium Succinate/ Dextrose (Solu-Medrol/D5W) 50 ml @ 100 mls /hr DAILY IVPB Last administered on 09/23/17 08:45; Admin Dose 100 MLS/HR; Start 09/23/17 at 09:00; Stop 09/25/17 at 08:59 Pantoprazole (Protonix Tab) 40 mg DAILY@06 PO Last administered on 09/23/17 06:02; Admin Dose 40 MG; Start 09/23/17 at 06:00 NATASHA SINCLAIR Sep 23, 2017 15:49
--- NOTE | 2017-09-23 16:34 | RADRPT ---
PROCEDURE: Fluoroscopic guided Lumbar puncture CLINICAL INDICATION: Altered mental status TECHNIQUE: After obtaining informed consent, the L5 level was prepped and draped in a sterile formerly [facility] ion. Under fluoroscopic guidance, 1% lidocaine was used for subcutaneous anesthesia. A 20-gauge spi nal needle was placed into the spinal canal, and 10 cc of clear CSF was removed without complication . A total of 0.4 minutes of fluoroscopy time was used. COMPARISON: MRI of the brain September 21, 2017 FINDINGS: Successful fluoroscopic guided lumbar puncture. 10 cc of clear CSF was removed without complication . IMPRESSION: Successful fluoroscopic guided lumbar puncture. 10 cc of clear CSF was removed without complication . RPTAT: QQ .Cheryl Griggs MD, Date Time Electronically viewed and signed by .Cheryl Griggs MD, on 09/23/2017 16:34 .F/
[2017-09-23 17:41] LABS: CSF COLOR COLORLESS; CSF#TUBE COUNT TUBE#4; CSF#TUBES REC'D 4
[2017-09-23 19:14] LABS: GLUCOSE,CSF 87 mg/dl (50-80)
[2017-09-23 21:03] VITALS: BP 113/66; RESP 18
[2017-09-24] MEDS ORDERED: ZOLPIDEM 5 MG TAB PO ONE (03:00)
[2017-09-24 03:02] VITALS: BP 110/73; RESP 18
[2017-09-24] MEDS ORDERED: LORAZEPAM 2 MG INJ IV ONE (04:00)
[2017-09-24] MEDS: PANTOPRAZOLE (EC) 40 MG TAB PO SCH (05:12)
[2017-09-24 06:08] LABS: BASOPHILS % 0.1 % (0.0-2.0); HEMATOCRIT 36.6 % (37.0-47.0); HEMOGLOBIN 12.5 g/dl (12.0-16.0); LYMPHOCYTES # 1.1 10^3/ul (0.8-2.9); LYMPHOCYTES % 6.8 % (15.0-51.0); MEAN CORPUSCULAR HEMOGLOBIN 30.3 pg (29.0-33.0); MEAN CORPUSCULAR HGB CONC 34.2 g/dl (32.0-37.0); MEAN CORPUSCULAR VOLUME 88.8 fl (82.0-101.0); MEAN PLATELET VOLUME 10.1 fl (7.4-10.4); MONOCYTE # 0.8 10^3/ul (0.3-0.9); MONOCYTES % 4.8 % (0.0-11.0); NEUTROPHIL # 14.2 10^3/ul (1.6-7.5); NEUTROPHILS % 87.6 % (39.0-77.0); PLATELET COUNT 259 10^3/UL (140-415); RED BLOOD COUNT 4.12 10^6/ul (4.20-5.40); WHITE BLOOD COUNT 16.2 10^3/ul (4.8-10.8)
[2017-09-24 06:45] LABS: ALBUMIN 4.2 g/dl (3.3-4.9); CALCIUM 9.5 mg/dl (8.4-10.2); CREATININE 0.56 mg/dl (0.44-1.00); MAGNESIUM 2.1 mg/dl (1.7-2.5); PHOSPHORUS 3.5 mg/dl (2.5-4.9)
[2017-09-24 08:00] VITALS: BP 109/58; RESP 19
[2017-09-24] MEDS: METHYLPRED. NA SUCC 1,000 MG in DEXTROSE 5% 50 ML IVPB SCH (09:11)
--- NOTE | 2017-09-24 12:38 | PN ---
Date/Time of Note Date/Time of Note DATE: 09/24/17 TIME: 12:37 Assessment/Plan VTE Prophylaxis VTE Prophylaxis Intervention: SCD's Lines/Catheters [facility] Saline Lock Urinary Cath still in place: No Assessment/Plan Chief Complaint/Hosp Course Assessment/Plan 1. Left sided numbness secondary to demyelinating disease - Neurology on board and recommendations appreciated. Suspecting MS per MRI, MRI cervical/thorax noted - Lumbar Puncture- CSF Cell Count, Protein, Glucose, Oligoclonal Bands, Paired IgG Index, GIO, CSF cultures - Solumedrol 1gm x3, up to 5. Patient wishes to try 5 days of IV steroids, neurology notified and is agreeable to change to 5 full days as patient is improving daily. - PT/OT - Will require outpatient neurology follow up to begin disease modifying therapy to help prevent further relapses 2. 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 Disposition - Awaiting results of LP, will likely have to f/u outpatient. - PT/OT evaluation Problems: Subjective 24 Hr Interval Summary Free Text/Dictation minimal improvement of LE Exam/Review of Systems Vital Signs Vitals Vital Signs Date Time Temp Pulse Resp B/P Pulse Ox O2 Delivery O2 Flow Rate FiO2 09/24/17 08:00 97.4 96 19 109/58 98 09/22/17 01:09 Room Air Intake and Output 09/23/17 09/23/17 09/24/17 15:00 23:00 07:00 Intake Total 50 ml 840 ml 560 ml Balance 50 ml 840 ml 560 ml Exam General: in no acute distress HEENT: Atraumatic, normocephalic. The pupils are equal, round and reactive. Extraocular motor are intact Neck: Supple with full range of motion Lungs: Clear to auscultation bilaterally no crackles rales or wheezing Heart: Normal S1-S2, Regular rhythm and rate. No murmur, S3, or S4 Abdomen: Soft , nontender, nondistended , bowel sounds are present. No guarding no rebound tenderness , Extremities: Normal to inspection, no edema no cyanosis Neurologic: Normal mental status, speech normal, cranial nerves II through XII are intact, sensory diminished in all extremities, strength 5 out of 5 in bilateral upper and lower extremities, Results Result Diagram: 09/24/17 0502 09/24/17 0502 Results 24 hrs Laboratory Tests Test 09/23/17 15:54 09/24/17 05:02 CSF Tubes Submitted 4 CSF Volume 10.0 CSF Appearance CLOUDY CSF Color COLORLESS CSF WBC 1 CSF RBC 0 CSF Cell Count Tube # TUBE#4 CSF Mononuclear Cells % (Auto) 100.0 CSF Polynuclear WBCs (%) 0.0 CSF Glucose 87 H CSF Total Protein 35 White Blood Count 16.2 #H Red Blood Count 4.12 L Hemoglobin 12.5 Hematocrit 36.6 L Mean Corpuscular Volume 88.8 Mean Corpuscular Hemoglobin 30.3 Mean Corpuscular Hemoglobin Concent 34.2 Red Cell Distribution Width 13.0 Platelet Count 259 Mean Platelet Volume 10.1 Neutrophils % 87.6 H Lymphocytes % 6.8 L Monocytes % 4.8 Eosinophils % 0.0 Basophils % 0.1 Nucleated Red Blood Cells % 0.0 Neutrophils # 14.2 H Lymphocytes # 1.1 Monocytes # 0.8 Eosinophils # 0.0 Basophils # 0.0 Nucleated Red Blood Cells # 0.0 Sodium Level 144 Potassium Level 4.0 Chloride Level 106 Carbon Dioxide Level 27 Anion Gap 15 Blood Urea Nitrogen 14 Creatinine 0.56 Glucose Level 139 Calcium Level 9.5 Phosphorus Level 3.5 Magnesium Level 2.1 Albumin 4.2 Medications Medications Current Medications Ondansetron HCl (Zofran Inj) 4 mg Q6H PRN IV NAUSEA AND/OR VOMITING; Start at 02:30 Acetaminophen 650 mg 650 mg Q6H PRN PO PAIN LEVEL 1-3 OR FEVER; Start at 02:30 Methylprednisolone Sodium Succinate/ Dextrose (Solu-Medrol/D5W) 50 ml @ 100 mls /hr DAILY IVPB Last administered on 09/24/17 09:11; Admin Dose 100 MLS/HR; Start 09/23/17 at 09:00; Stop 09/25/17 at 08:59 Pantoprazole (Protonix Tab) 40 mg DAILY@06 PO Last administered on 09/24/17 05:12; Admin Dose 40 MG; Start 09/23/17 at 06:00 NATASHA SINCLAIR Sep 24, 2017 12:38
[2017-09-24 14:00] VITALS: BP 122/75; RESP 19
--- NOTE | 2017-09-24 14:21 | CONS ---
Date/Time of Note Date/Time of Note DATE: 09/24/17 TIME: 14:19 Consult Date/Type/Reason Admit Date/Time Sep 22, 2017 at 00:41 Initial Consult Date 09/22/17 Type of Consultation: Neurology Reason for Consultation demyelinating disease Ordering Provider: MARCUS ROBERT Subjective improving right sided LE weakness, UE still feels weak w parasthesias Objective Vital Signs Date Time Temp Pulse Resp B/P Pulse Ox O2 Delivery O2 Flow Rate FiO2 09/24/17 08:00 97.4 96 19 109/58 98 09/22/17 01:09 Room Air Intake and Output 09/23/17 09/23/17 09/24/17 14:59 22:59 06:59 Intake Total 50 ml 840 ml 560 ml Balance 50 ml 840 ml 560 ml Exam Constitutional: alert, oriented, well developed Neurological: FILM PROJECTOR OPERATOR II-XII 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, DTR's symmetric (right arm drift and right leg drift mild 5-/5 weakness decreased sensation to right arm and leg), nl mental status, nl speech Results/Medications Result Diagram: 09/24/17 0502 09/24/17 0502 Results 24 hrs Laboratory Tests Test 09/23/17 15:54 09/24/17 05:02 CSF Tubes Submitted 4 CSF Volume 10.0 CSF Appearance CLOUDY CSF Color COLORLESS CSF WBC 1 CSF RBC 0 CSF Cell Count Tube # TUBE#4 CSF Mononuclear Cells % (Auto) 100.0 CSF Polynuclear WBCs (%) 0.0 CSF Glucose 87 H CSF Total Protein 35 White Blood Count 16.2 #H Red Blood Count 4.12 L Hemoglobin 12.5 Hematocrit 36.6 L Mean Corpuscular Volume 88.8 Mean Corpuscular Hemoglobin 30.3 Mean Corpuscular Hemoglobin Concent 34.2 Red Cell Distribution Width 13.0 Platelet Count 259 Mean Platelet Volume 10.1 Neutrophils % 87.6 H Lymphocytes % 6.8 L Monocytes % 4.8 Eosinophils % 0.0 Basophils % 0.1 Nucleated Red Blood Cells % 0.0 Neutrophils # 14.2 H Lymphocytes # 1.1 Monocytes # 0.8 Eosinophils # 0.0 Basophils # 0.0 Nucleated Red Blood Cells # 0.0 Sodium Level 144 Potassium Level 4.0 Chloride Level 106 Carbon Dioxide Level 27 Anion Gap 15 Blood Urea Nitrogen 14 Creatinine 0.56 Glucose Level 139 Calcium Level 9.5 Phosphorus Level 3.5 Magnesium Level 2.1 Albumin 4.2 Medications Current Medications Ondansetron HCl (Zofran Inj) 4 mg Q6H PRN IV NAUSEA AND/OR VOMITING; Start at 02:30 Acetaminophen (Tylenol Tab) 650 mg Q6H PRN PO PAIN LEVEL 1-3 OR FEVER; Start 09/22/17 at 02:30 Pantoprazole 40 mg 40 mg DAILY@06 PO Last administered on 09/24/17t 05:12; Admin Dose 40 MG; Start 09/23/17 at 06:00 Methylprednisolone Sodium Succinate/ Dextrose (Solu-Medrol/D5W) 50 ml @ 100 mls /hr DAILY IVPB ; Start 09/25/17 at 09:00; Stop 09/26/17 at 09:29 Assessment/Plan Chief Complaint/Hosp Course 32 yo female with history of prior left sided numbness lasting several weeks admitted with UE parasthesias and right sided weakness. MRI shows 3 lesions left parietal subcortical region, periventricular region. right frontal and left temporal There evidence of dissemination of lesions in space per Tovar's criteria. Reviewed imaging with patient I suspect she has multiple sclerosis. CSF Studies: WBC: 1, Glucose: 87, Protein: 35 Culture negative Ig G index and Oligoclonal bands are pending Recommendations: IV Steroids 2 more days for a total of 5 doses with Protonix MRI Cervical and Thoracic Spine with and without contrast- resulted normal PT/OT eval DVT ppx will follow advised patient she will require outpatient neurology follow up to begin disease modifying therapy to help prevent further relapses Problems: SANTI BEAULIEU MD Sep 24, 2017 14:21
[2017-09-24] MEDS: ZOLPIDEM 5 MG TAB PO PRN (20:16)
[2017-09-24 20:30] VITALS: BP 109/62; RESP 18
[2017-09-25 02:39] VITALS: BP 114/59; RESP 18
[2017-09-25] MEDS: PANTOPRAZOLE (EC) 40 MG TAB PO SCH (05:47)
[2017-09-25 06:49] LABS: BASOPHILS % 0.1 % (0.0-2.0); HEMATOCRIT 38.2 % (37.0-47.0); LYMPHOCYTES # 1.6 10^3/ul (0.8-2.9); LYMPHOCYTES % 10.7 % (15.0-51.0); MEAN CORPUSCULAR HEMOGLOBIN 30.6 pg (29.0-33.0); MEAN CORPUSCULAR VOLUME 89.9 fl (82.0-101.0); MEAN PLATELET VOLUME 10.3 fl (7.4-10.4); MONOCYTE # 0.8 10^3/ul (0.3-0.9); MONOCYTES % 5.6 % (0.0-11.0); NEUTROPHIL # 12.3 10^3/ul (1.6-7.5); PLATELET COUNT 257 10^3/UL (140-415); RED BLOOD COUNT 4.25 10^6/ul (4.20-5.40); RED CELL DISTRIBUTION WIDTH 13.3 % (11.5-14.5); WHITE BLOOD COUNT 14.8 10^3/ul (4.8-10.8)
[2017-09-25 07:16] LABS: ALBUMIN 4.2 g/dl (3.3-4.9); CALCIUM 9.2 mg/dl (8.4-10.2); CREATININE 0.62 mg/dl (0.44-1.00); MAGNESIUM 2.4 mg/dl (1.7-2.5); PHOSPHORUS 4.4 mg/dl (2.5-4.9); POTASSIUM 4.5 mmol/L (3.5-5.1)
[2017-09-25 07:27] VITALS: BP 109/78; RESP 18
[2017-09-25] MEDS: METHYLPRED. NA SUCC 1,000 MG in DEXTROSE 5% 50 ML IVPB SCH (08:38)
--- NOTE | 2017-09-25 13:20 | CONS ---
Date/Time of Note Date/Time of Note DATE: 09/25/17 TIME: 13:17 Consult Date/Type/Reason Admit Date/Time Sep 22, 2017 at 00:41 Initial Consult Date 09/22/17 Type of Consultation: Neurology Reason for Consultation suspected MS Ordering Provider: MARCUS ROBERT Subjective Day02/08 Solumedrol sx continue to improve Objective Vital Signs Date Time Temp Pulse Resp B/P Pulse Ox O2 Delivery O2 Flow Rate FiO2 09/25/17 07:27 98.1 73 18 109/78 99 09/22/17 01:09 Room Air Intake and Output 09/24/17 09/24/17 09/25/17 15:00 23:00 07:00 Intake Total 50 ml 960 ml 520 ml Balance 50 ml 960 ml 520 ml Exam Constitutional: alert, oriented, well developed Neurological: FULL STACK JAVA DEVELOPER II-XII 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, DTR's symmetric (right arm drift and right leg drift mild 5-/5 weakness decreased sensation to right arm and leg), nl mental status, nl speech Results/Medications Result Diagram: 09/25/17 0551 09/25/17 0551 Results 24 hrs Laboratory Tests Test 09/25/17 05:51 White Blood Count 14.8 H Red Blood Count 4.25 Hemoglobin 13.0 Hematocrit 38.2 Mean Corpuscular Volume 89.9 Mean Corpuscular Hemoglobin 30.6 Mean Corpuscular Hemoglobin Concent 34.0 Red Cell Distribution Width 13.3 Platelet Count 257 Mean Platelet Volume 10.3 Neutrophils % 83.0 H Lymphocytes % 10.7 L Monocytes % 5.6 Eosinophils % 0.0 Basophils % 0.1 Nucleated Red Blood Cells % 0.0 Neutrophils # 12.3 H Lymphocytes # 1.6 Monocytes # 0.8 Eosinophils # 0.0 Basophils # 0.0 Nucleated Red Blood Cells # 0.0 Sodium Level 142 Potassium Level 4.5 Chloride Level 102 Carbon Dioxide Level 31 Anion Gap 14 Blood Urea Nitrogen 15 Creatinine 0.62 Glucose Level 127 Calcium Level 9.2 Phosphorus Level 4.4 Magnesium Level 2.4 Albumin 4.2 Medications Current Medications Ondansetron HCl (Zofran Inj) 4 mg Q6H PRN IV NAUSEA AND/OR VOMITING; Start at 02:30 Acetaminophen (Tylenol Tab) 650 mg Q6H PRN PO PAIN LEVEL 1-3 OR FEVER; Start 09/22/17 at 02:30 Pantoprazole 40 mg 40 mg DAILY@06 PO Last administered on 09/25/17 05:47; Admin Dose 40 MG; Start 09/23/17 at 06:00 Methylprednisolone Sodium Succinate/ Dextrose (Solu-Medrol/D5W) 50 ml @ 100 mls /hr DAILY IVPB Last administered on 09/25/17 08:38; Admin Dose 100 MLS/HR; Start 09/25/17 at 09:00; Stop 09/26/17 at 09:29 Zolpidem Tartrate (Ambien) 10 mg HS PRN PO INSOMNIA Last administered on 20:16; Admin Dose 10 MG; Start 09/24/17 at 20:00 Assessment/Plan Chief Complaint/Hosp Course 32 yo female with history of prior left sided numbness lasting several weeks admitted with UE parasthesias and right sided weakness. MRI shows 3 lesions left parietal subcortical region, periventricular region. right frontal and left temporal There evidence of dissemination of lesions in space per Tovar's criteria. Reviewed imaging with patient I suspect she has multiple sclerosis. CSF Studies: WBC: 1, Glucose: 87, Protein: 35 Culture negative Ig G index and Oligoclonal bands are pending Recommendations: IV Steroids 1 more days for a total of 5 doses with Protonix MRI Cervical and Thoracic Spine with and without contrast- resulted normal advised patient it may take up to 1 week for bands and IgG index to result in CSF she may fu with MR to obtain her records in atleast a week to ensure she has all the complete information to provide to her neurologist on an upcoming visit she will see her primary next Monday to set up a neurology referral PT/OT eval outpatient therapy recommended DVT ppx dc tomorrow Problems: SANTI BEAULIEU MD Sep 25, 2017 13:20
[2017-09-25 14:56] VITALS: BP 119/67; RESP 18
--- NOTE | 2017-09-25 16:13 | PN ---
Date/Time of Note Date/Time of Note DATE: 09/25/17 TIME: 16:11 Assessment/Plan VTE Prophylaxis VTE Prophylaxis Intervention: SCD's Lines/Catheters IV [facility]from [facility] Peripheral IV Urinary Cath still in place: No Assessment/Plan Chief Complaint/Hosp Course Assessment/Plan 1. Left sided numbness secondary to demyelinating disease - Neurology on board and recommendations appreciated. Suspecting MS per MRI, MRI cervical/thorax noted - Lumbar Puncture- CSF Cell Count, Protein, Glucose, Oligoclonal Bands, Paired IgG Index, GIO, CSF cultures - Solumedrol 1gm, up to 5. Patient wishes to try 5 days of IV steroids, neurology notified and is agreeable to change to 5 full days as patient is improving daily. - PT/OT - Will require outpatient neurology follow up to begin disease modifying therapy to help prevent further relapses 2. 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 Disposition - Awaiting results of LP, will likely have to f/u outpatient. - PT/OT evaluation Problems: Subjective 24 Hr Interval Summary Free Text/Dictation some improvement with left leg/arm Exam/Review of Systems Vital Signs Vitals Vital Signs Date Time Temp Pulse Resp B/P Pulse Ox O2 Delivery O2 Flow Rate FiO2 09/25/17 14:56 98.0 76 18 119/67 98 09/22/17 01:09 Room Air Intake and Output 09/24/17 09/24/17 09/25/17 14:59 22:59 06:59 Intake Total 50 ml 960 ml 520 ml Balance 50 ml 960 ml 520 ml Exam General: in no acute distress HEENT: Atraumatic, normocephalic. The pupils are equal, round and reactive. Extraocular motor are intact Neck: Supple with full range of motion Lungs: Clear to auscultation bilaterally no crackles rales or wheezing Heart: Normal S1-S2, Regular rhythm and rate. No murmur, S3, or S4 Abdomen: Soft , nontender, nondistended , bowel sounds are present. No guarding no rebound tenderness , Extremities: Normal to inspection, no edema no cyanosis Neurologic: Normal mental status, speech normal, cranial nerves II through XII are intact, sensory diminished in all extremities, strength 5 out of 5 in bilateral upper and lower extremities, Results Result Diagram: 09/25/1755009/25/17 0551 Results 24 hrs Laboratory Tests Test 09/25/17 05:51 White Blood Count 14.8 H Red Blood Count 4.25 Hemoglobin 13.0 Hematocrit 38.2 Mean Corpuscular Volume 89.9 Mean Corpuscular Hemoglobin 30.6 Mean Corpuscular Hemoglobin Concent 34.0 Red Cell Distribution Width 13.3 Platelet Count 257 Mean Platelet Volume 10.3 Neutrophils % 83.0 H Lymphocytes % 10.7 L Monocytes % 5.6 Eosinophils % 0.0 Basophils % 0.1 Nucleated Red Blood Cells % 0.0 Neutrophils # 12.3 H Lymphocytes # 1.6 Monocytes # 0.8 Eosinophils # 0.0 Basophils # 0.0 Nucleated Red Blood Cells # 0.0 Sodium Level 142 Potassium Level 4.5 Chloride Level 102 Carbon Dioxide Level 31 Anion Gap 14 Blood Urea Nitrogen 15 Creatinine 0.62 Glucose Level 127 Calcium Level 9.2 Phosphorus Level 4.4 Magnesium Level 2.4 Albumin 4.2 Medications Medications Current Medications Ondansetron HCl (Zofran Inj) 4 mg Q6H PRN IV NAUSEA AND/OR VOMITING; Start at 02:30 Acetaminophen (Tylenol Tab) 650 mg Q6H PRN PO PAIN LEVEL 1-3 OR FEVER Last administered on 09/25/17 14:08; Admin Dose 650 MG; Start 09/22/17 at 02:30 Pantoprazole 40 mg 40 mg DAILY@06 PO Last administered on 09/25/17 05:47; Admin Dose 40 MG; Start 09/23/17 at 06:00 Methylprednisolone Sodium Succinate/ Dextrose (Solu-Medrol/D5W) 50 ml @ 100 mls /hr DAILY IVPB Last administered on 09/25/17 08:38; Admin Dose 100 MLS/HR; Start 09/25/17 at 09:00; Stop 09/26/17 at 09:29 Zolpidem Tartrate (Ambien) 10 mg HS PRN PO INSOMNIA Last administered on 20:16; Admin Dose 10 MG; Start 09/24/17 at 20:00 NATASHA SINCLAIR Sep 25, 2017 16:13
[2017-09-25] MEDS: ZOLPIDEM 5 MG TAB PO PRN (20:37)
[2017-09-25 21:03] VITALS: BP 122/67; RESP 18
[2017-09-26 02:00] VITALS: BP 120/71; RESP 19
[2017-09-26] MEDS: PANTOPRAZOLE (EC) 40 MG TAB PO SCH (05:42)
[2017-09-26 06:44] LABS: BASOPHILS % 0.1 % (0.0-2.0); HEMATOCRIT 37.4 % (37.0-47.0); HEMOGLOBIN 12.8 g/dl (12.0-16.0); LYMPHOCYTES # 1.9 10^3/ul (0.8-2.9); LYMPHOCYTES % 15.1 % (15.0-51.0); MEAN CORPUSCULAR HEMOGLOBIN 30.5 pg (29.0-33.0); MEAN CORPUSCULAR HGB CONC 34.2 g/dl (32.0-37.0); MEAN PLATELET VOLUME 10.1 fl (7.4-10.4); MONOCYTE # 0.9 10^3/ul (0.3-0.9); MONOCYTES % 6.8 % (0.0-11.0); NEUTROPHIL # 9.8 10^3/ul (1.6-7.5); NEUTROPHILS % 77.1 % (39.0-77.0); PLATELET COUNT 252 10^3/UL (140-415); RED CELL DISTRIBUTION WIDTH 13.1 % (11.5-14.5); WHITE BLOOD COUNT 12.7 10^3/ul (4.8-10.8)
[2017-09-26 07:33] LABS: CALCIUM 8.9 mg/dl (8.4-10.2); CREATININE 0.64 mg/dl (0.44-1.00); MAGNESIUM 2.4 mg/dl (1.7-2.5); PHOSPHORUS 3.9 mg/dl (2.5-4.9); POTASSIUM 3.9 mmol/L (3.5-5.1)
[2017-09-26] MEDS: METHYLPRED. NA SUCC 1,000 MG in DEXTROSE 5% 50 ML IVPB SCH (08:54)
--- NOTE | 2017-09-26 14:24 | PDOCDIS ---
Discharge Instructions CONDITION Patient Condition: Stable HOME CARE INSTRUCTIONS: Diet Instructions: RegularSpecial Diet: regular FOLLOW UP/APPOINTMENTS Follow-up Plan 1. Follow up with your assigned primary care provider for a neurologist referral for likely multiple sclerosis diagnosis 2. Follow up with outpatient PT referral made by case management 3. Obtain records in 1-2 weeks for oligoclonal bands, IGG, lumbar tap results and cultures NATASHA SINCLAIR Sep 26, 2017 14:24
--- NOTE | 2017-09-26 14:28 | DS ---
Date/Time of Note Date/Time of Note DATE: 09/26/17 TIME: 14:28 Discharge Summary Admission/Discharge Info Admit Date/Time Sep 22, 2017 at 00:41 Discharge Date/Time Patient Condition: Stable Hospital Course Patient is a 32-year-old female who was admitted and found to have likely multiple sclerosis. Patient had multiple imaging studies as well as lumbar puncture during the stay and was seen by neurology. Patient also received a 5 day course of high-dose steroids with moderate resolution of her symptoms. Patient had symptoms approximately 1 year ago however did not follow- up with the doctor, it was explained to the patient in explicit detail that the most important thing is to follow-up with her primary care provider and get a referral to neurologist as soon as possible for further treatment options. Patient understands and was provided with social work referral as well as physical therapy outpatient, walker, and home safety eval. Patient understands and will follow up as soon as possible with her primary care provider. Patient also understands to follow-up and obtain records regarding her lumbar puncture within 1-2 weeks. Discharge diagnosis Upper and lower extremity paresthesias and weakness Endometriosis Headache Home Meds Discontinued Scripts Ibuprofen* (Motrin*) 600 Mg Tab, 600 MG PO Q6, #20 TAB Prov:RODOLFO COOK MD 05/02/16 Azithromycin* (Azithromycin*) 250 Mg Tablet, 250 MG PO DAILY, #6 TAB take 2 tab po on day 1, then 1 tab po on day 2-5 Prov:NEGRITO SINCLAIR PA-C 04/18/15 Gentamicin Sulfate* (Gentamicin Sulfate* Ophth) 0.3% - 5 Ml Drops, 1 DROP BOTH EYES Q4 for 7 Days, EA Prov:NEGRITO SINCLAIR PA-C 04/18/15 Follow-up Plan 1. Follow up with your assigned primary care provider for a neurologist referral for likely multiple sclerosis diagnosis 2. Follow up with outpatient PT referral made by case management 3. Obtain records in 1-2 weeks for oligoclonal bands, IGG, lumbar tap results and cultures Primary Care Provider Yaquelin Blount DO Time spent on discharge: > 30 minutes Pending Labs Laboratory Tests Test 09/26/17 05:51 White Blood Count 12.710^3/ul (4.8-10.8) Red Blood Count 4.2010^6/ul (4.20-5.40) Hemoglobin 12.8g/dl (12.0-16.0) Hematocrit 37.4% (37.0-47.0) Mean Corpuscular Volume 89.0fl (82.0-101.0) Mean Corpuscular Hemoglobin 30.5pg (29.0-33.0) Mean Corpuscular Hemoglobin Concent 34.2g/dl (32.0-37.0) Red Cell Distribution Width 13.1% (11.5-14.5) Platelet Count 35550^3/UL (140-415) Mean Platelet Volume 10.1fl (7.4-10.4) Neutrophils % 77.1% (39.0-77.0) Lymphocytes % 15.1% (15.0-51.0) Monocytes % 6.8% (0.0-11.0) Eosinophils % 0.0% (0.0-7.0) Basophils % 0.1% (0.0-2.0) Nucleated Red Blood Cells % 0.0/100WBC (0.0-0.0) Neutrophils # 9.810^3/ul (1.6-7.5) Lymphocytes # 1.910^3/ul (0.8-2.9) Monocytes # 0.910^3/ul (0.3-0.9) Eosinophils # 0.010^3/ul (0.0-0.5) Basophils # 0.010^3/ul (0.0-0.1) Nucleated Red Blood Cells # 0.010^3/ul (0.0-0.0) Sodium Level 140mmol/L (135-144) Potassium Level 3.9mmol/L (3.5-5.1) Chloride Level 102mmol/L (97-110) Carbon Dioxide Level 29mmol/L (21-31) Anion Gap 13 (8-16) Blood Urea Nitrogen 18mg/dl (7-20) Creatinine 0.64mg/dl (0.44-1.00) Glucose Level 107mg/dl (70-220) Calcium Level 8.9mg/dl (8.4-10.2) Phosphorus Level 3.9mg/dl (2.5-4.9) Magnesium Level 2.4mg/dl (1.7-2.5) NATASHA SINCLAIR Sep 26, 2017 14:28
== END 2017-09-26 18:19 | disposition home or self-care (01) | DRG 60 ==
LOC: FTE 17:01 → PP2 09-22 00:41
PROVIDERS: ADMIT Family Medicine; ATTEND Family Medicine
PROC: 009U3ZX Drainage of Spinal Canal, Percutaneous Approach, Diagnostic (ICD-10-PCS; principal; 2017-09-23)
PROC: B01BZZZ Fluoroscopy of Spinal Cord (ICD-10-PCS; 2017-09-23)
PROC: 3E0234Z Introduction of Serum, Toxoid and Vaccine into Muscle, Percutaneous Approach (ICD-10-PCS; 2017-09-23)
DX: G35 Multiple sclerosis (principal); N80.9 Endometriosis, unspecified; R51 Headache; Z23 Encounter for immunization
CPT/HCPCS: 70450; 70553; 72156; 72157; 80048; 80053; 80061; 80069; 82040; 82042; 82784; 82945; 82962; 83036; 83735; 84100; 84157; 84443; 84703; 85025; 85610; 85730; 87070; 89051; 90686; 97110; 97116; 97162; C9113; J2060; J2930; J7030

== ENCOUNTER 2017-10-01 00:08 | Emergency (ER) | payer OTHER ==
[~2017-10-01] VITALS: Ht 154.9 cm; Wt 66.8 kg
[2017-10-01 00:14] VITALS: Ht 154.9 cm; Wt 66.8 kg
--- NOTE | 2017-10-01 00:42 | ERD ---
ER Documentation Chief Complaint Chief Complaint nauseous,dizzy,tingling sensation,&fatigue since this AM HPI 32-year-old woman with a recent history of multiple sclerosis status post 5 days of high-dose IV glucocorticoids presents with episodes of dizziness, hypotension, diaphoresis. She received IV glucocorticoids while in the hospital and has been off of them for about 5 days. She also complains of bilateral lower back pain, nonradiating nonexertional and worse bilaterally not associated with midline back pain. She is status post lumbar puncture as well. She denies fevers, no cough, no chest pain or shortness of breath, no loss of consciousness. Patient later admitted to having daily urinary frequency 3 days without hematuria. ROS All systems reviewed and are negative except as per history of present illness. Medications Home Meds Active Scripts Cephalexin* (Keflex*) 500 Mg Capsule, 500 MG PO QID for 5 Days, CAP Prov:NATASHA NORIEGA MD 10/01/17 Discontinued Scripts Ibuprofen* (Motrin*) 600 Mg Tab, 600 MG PO Q6, #20 TAB Prov:RODOLFO COOK MD 05/02/16 Azithromycin* (Azithromycin*) 250 Mg Tablet, 250 MG PO DAILY, #6 TAB take 2 tab po on day 1, then 1 tab po on day 2-5 Prov:NEGRITO SINCLAIR PA-C 04/18/15 Gentamicin Sulfate* (Gentamicin Sulfate* Ophth) 0.3% - 5 Ml Drops, 1 DROP BOTH EYES Q4 for 7 Days, EA Prov:NEGRITO SINCLAIR PA-C 04/18/15 Allergies Allergies: Coded Allergies: No Known Allergy (Unverified , 08/30/16) PMhx/Soc Recent diagnosis of multiple sclerosis versus acute demyelinating encephalomyelitis, left sided numbness lasting several weeks admitted with UE parasthesias and right sided weakness. MRI shows 3 lesions left parietal subcortical region, periventricular region. right frontal and left temporal regions. History of Surgery: No Anesthesia Reaction: No Hx Neurological Disorder: No Hx Respiratory Disorders: No Hx Cardiac Disorders: No Hx Psychiatric Problems: No Hx Miscellaneous Medical Probl: Yes (pls see EMR) Hx Alcohol Use: No Hx Substance Use: No Hx Tobacco Use: No FmHx Family History: No diabetes Physical Exam Vitals Vital Signs Date Time Temp Pulse Resp B/P Pulse Ox O2 Delivery O2 Flow Rate FiO2 10/01/17 02:15 98.6 76 20 122/71 100 Room Air 10/01/17 00:14 98.6 86 20 124/68 100 Physical Exam GENERAL: Well-developed, well-nourished, well-hydrated, in no apparent distress , looks nontoxic in appearance HEENT: Moist mucous membranes, pink conjunctiva, no cervical spine tenderness or step-off deformities, no goiter, no jaundice or icterus, extraocular movements intact without pain. No submandibular induration, and no pharyngeal erythema NEURO: Alert and oriented 3, mild paresis to the right upper and lower extremity, cranial nerves II through XII intact bilaterally, pupils equal round reactive to light, CARDIAC: Regular rate and rhythm, no murmurs rubs or gallops LUNGS: Clear bilaterally no wheezing crackles or stridor ABDOMEN: Soft nontender, no guarding, no rigidity, no rebound, no psoas sign no obturator sign. Normoactive bowel sounds SKIN: Warm and dry to touch, no abrasions, contusions, or hematomas, no lacerations, no ecchymosis, no target lesions, and without ulcers EXTREMITIES: No clubbing cyanosis or edema, calves are bilaterally symmetrical, no Homans sign, no popliteal cord sign. Distal pulses equal and bilateral PSYCH: Normal affect without agitation or irritability Result Diagram: 10/01/179910/01/1799 Results 24 hrs Laboratory Tests Test 10/01/17 01:00 White Blood Count 12.810^3/ul Red Blood Count 4.6310^6/ul Hemoglobin 14.1g/dl Hematocrit 41.8% Mean Corpuscular Volume 90.3fl Mean Corpuscular Hemoglobin 30.5pg Mean Corpuscular Hemoglobin Concent 33.7g/dl Red Cell Distribution Width 13.3% Platelet Count 38257^3/UL Mean Platelet Volume 9.7fl Neutrophils % 61.9% Lymphocytes % 29.1% Monocytes % 6.3% Eosinophils % 1.6% Basophils % 0.2% Nucleated Red Blood Cells % 0.0/100WBC Neutrophils # 7.910^3/ul Lymphocytes # 3.710^3/ul Monocytes # 0.810^3/ul Eosinophils # 0.210^3/ul Basophils # 0.010^3/ul Nucleated Red Blood Cells # 0.010^3/ul Urine Color YELLOW Urine Clarity CLOUDY Urine pH 5.0 Urine Specific [place] 1.029 Urine Ketones NEGATIVEmg/dL Urine Nitrite NEGATIVEmg/dL Urine Bilirubin NEGATIVEmg/dL Urine Urobilinogen NEGATIVEmg/dL Urine Leukocyte Esterase TRACELeu/ul Urine Microscopic RBC 7/HPF Urine Microscopic WBC 5/HPF Urine Squamous Epithelial Cells MODERATE/HPF Urine Bacteria FEW/HPF Urine Mucus MANY/HPF Urine Hemoglobin 2+mg/dL Urine Glucose NEGATIVEmg/dL Urine Total Protein NEGATIVEmg/dl Sodium Level 139mmol/L Potassium Level 4.0mmol/L Chloride Level 100mmol/L Carbon Dioxide Level 27mmol/L Anion Gap 16 Blood Urea Nitrogen 17mg/dl Creatinine 0.65mg/dl Glucose Level 103mg/dl Calcium Level 9.1mg/dl Total Bilirubin 0.5mg/dl Direct Bilirubin 0.00mg/dl Indirect Bilirubin 0.5mg/dl Aspartate Amino Transf (AST/SGOT) 23IU/L Alanine Aminotransferase (ALT/SGPT) 50IU/L Alkaline Phosphatase 111IU/L Troponin I < 0.012ng/ml Total Protein 7.5g/dl Albumin 4.2g/dl Globulin 3.30g/dl Albumin/Globulin Ratio 1.27 Lipase 36U/L Current Medications Medications (Trade) Dose Ordered Sig/Juan Route PRN Reason Start Time Stop Time Status Last Admin Dose Admin Sodium Chloride (NS) 1,000 ml @ 1,000 mls/hr Q1H STAT IV 10/01/17 00:53 10/01/17 01:52 DC 10/01/17 01:12 Ondansetron HCl (Zofran Inj) 4 mg ONCE STAT IV 10/01/17 00:53 10/01/17 00:54 DC 10/01/17 01:12 Ketorolac Tromethamine (Toradol) 15 mg ONCE STAT IV 10/01/17 01:42 10/01/17 01:43 DC 10/01/17 01:58 Cephalexin (Keflex) 500 mg ONCE ONCE PO 10/01/17 03:00 10/01/17 03:01 DC 10/01/17 02:58 Procedures/[facility] IV line was established patient was placed on lunchroom monitor rhythm strip revealed a sinus rhythm at about 80 bpm with upright P and T waves. Patient was afebrile EKG performed, read by me: 73 bpm, normal sinus rhythm, normal axis, no acute ST segment changes, narrow QRS complex, with good R-wave progression in precordial leads. I administered 1 L normal saline intravenously, Zofran 4 mg IV, patient also received Toradol 15 mg IV for complaints of back pain X-ray LS-Spine 3V Interpreted by me: Bones: No fracture Joints: No dislocation Foreign body: None CBC normal, electrolytes were normal, liver function tests were normal, troponin was negative, urine analysis was positive for infection. I administered cephalexin 500 mg p.o. 1 here in the emergency department. Differential diagnoses considered, included but not limited to acute coronary syndrome, pulmonary embolism, aortic dissection, abdominal aortic aneurysm, sepsis, stroke, meningitis, encephalitis, pneumonia, appendicitis, cholecystitis , bowel obstruction, pyelonephritis, nephrolithiasis, cystitis, as well as metabolic, hematologic, and electrolyte abnormalities. As well as abscess, cellulitis, fractures, and dislocations. Patient feels much better at this time, and vital signs are normal, symptoms have improved. I did give strict instructions to return to the ED if symptoms continue or worsen, patient will otherwise follow-up with primary care physician. Patient understood instructions and agreed to plan. Disclaimer: Inadvertent spelling and grammatical errors are likely due to EHR/ dictation software use and do not reflect on the overall quality of patient care. Also, please note that the electronic time recorded on this note does not necessarily reflect the actual time of the patient encounter. Departure Diagnosis: Primary Impression: Multiple sclerosis Additional Impressions: Acute adrenal insufficiency UTI (urinary tract infection) Urinary tract infection type: acute cystitis Hematuria presence: without hematuria Qualified Code: N30.00 - Acute cystitis without hematuria Condition: NATASHA Schmid MD Oct 01, 2017 00:42
[2017-10-01] MEDS ORDERED: ONDANSETRON 4 MG INJ IV STA (00:53)
[2017-10-01] MEDS ORDERED: SOD CHLORIDE 0.9% 1,000 ML IV STA (00:53)
[2017-10-01 01:27] LABS: BASOPHILS % 0.2 % (0.0-2.0); EOSINOPHILS # 0.2 10^3/ul (0.0-0.5); EOSINOPHILS % 1.6 % (0.0-7.0); HEMATOCRIT 41.8 % (37.0-47.0); HEMOGLOBIN 14.1 g/dl (12.0-16.0); LYMPHOCYTES # 3.7 10^3/ul (0.8-2.9); LYMPHOCYTES % 29.1 % (15.0-51.0); MEAN CORPUSCULAR HEMOGLOBIN 30.5 pg (29.0-33.0); MEAN CORPUSCULAR HGB CONC 33.7 g/dl (32.0-37.0); MEAN CORPUSCULAR VOLUME 90.3 fl (82.0-101.0); MEAN PLATELET VOLUME 9.7 fl (7.4-10.4); MONOCYTE # 0.8 10^3/ul (0.3-0.9); MONOCYTES % 6.3 % (0.0-11.0); NEUTROPHIL # 7.9 10^3/ul (1.6-7.5); NEUTROPHILS % 61.9 % (39.0-77.0); PLATELET COUNT 253 10^3/UL (140-415); RED BLOOD COUNT 4.63 10^6/ul (4.20-5.40); RED CELL DISTRIBUTION WIDTH 13.3 % (11.5-14.5); WHITE BLOOD COUNT 12.8 10^3/ul (4.8-10.8)
[2017-10-01] MEDS ORDERED: KETOROLAC 15 MG INJ IV STA (01:42)
[2017-10-01 01:57] LABS: ADD UMIC YES; UR ASCORBIC ACID NEGATIVE (NEGATIVE); UR BILIRUBIN (Dip) NEGATIVE (NEGATIVE); UR BLOOD (Dip) 2+ mg/dL (NEGATIVE); UR CLARITY CLOUDY (CLEAR); UR COLOR YELLOW (YELLOW); UR GLUCOSE (Dip) NEGATIVE (NEGATIVE); UR KETONES (Dip) NEGATIVE (NEGATIVE); UR LEUKOCYTE ESTERASE (Dip) TRACE Leu/ul (NEGATIVE); UR NITRITE (Dip) NEGATIVE (NEGATIVE); UR RBC 7 /HPF (0-5); UR SPECIFIC GRAVITY (Dip) 1.029 (1.003-1.030); UR TOTAL PROTEIN (Dip) NEGATIVE (NEGATIVE); UR UROBILINOGEN (Dip) NEGATIVE (NEGATIVE)
[2017-10-01 01:58] LABS: ALANINE AMINOTRANSFERASE 50 IU/L (13-69); ALBUMIN 4.2 g/dl (3.3-4.9); ALBUMIN/GLOBULIN RATIO 1.27; ALKALINE PHOSPHATASE 111 IU/L (42-121); ANION GAP 16 (8-16); ASPARTATE AMINO TRANSFERASE 23 IU/L (15-46); BILIRUBIN,INDIRECT 0.5 mg/dl (0-1.1); BILIRUBIN,TOTAL 0.5 mg/dl (0.2-1.3); BLOOD UREA NITROGEN 17 mg/dl (7-20); CALCIUM 9.1 mg/dl (8.4-10.2); CARBON DIOXIDE 27 mmol/L (21-31); CHLORIDE 100 mmol/L (97-110); CREATININE 0.65 mg/dl (0.44-1.00); GLUCOSE 103 mg/dl (70-220); SODIUM 139 mmol/L (135-144); TOTAL PROTEIN 7.5 g/dl (6.1-8.1); UR BACTERIA FEW /HPF (NONE SEEN); UR MUCUS MANY /HPF (NONE SEEN); UR SQUAMOUS EPITHELIAL CELL MODERATE /HPF (FEW)
[2017-10-01 02:15] VITALS: BP 122/71; PULSE 76; RESP 20; TEMP 98.6
--- NOTE | 2017-10-01 02:33 | RADRPT ---
PROCEDURE: XR Lumbar Spine. CLINICAL INDICATION: Lumbar spine pain. TECHNIQUE: AP, lateral and cone-down lateral view of the lumbar spine were obtained. COMPARISON: No prior studies are available for comparison. FINDINGS: There is normal vertebral mineralization and alignment. No fracture or subluxation is seen. The disc spaces are normal in appearance. The posterior elements are unremarkable. The soft tissues appear normal. IMPRESSION: Unremarkable lumbar spine. RPTAT: [facility] Physician Jessy Date Time Electronically viewed and signed by Physician Jessy on 10/01/2017 02:33 RS/
[2017-10-01 02:44] LABS: TROPONIN-I < 0.012 ng/ml (0.00-0.12)
[2017-10-01] MEDS ORDERED: CEPHALEXIN 500 MG CAP PO ONE (03:00)
[2017-10-01] MEDS ORDERED: CEPH-443 PO (03:32)
== END 2017-10-01 02:15 | disposition home or self-care (01) ==
LOC: E/R 00:08
DX: G35 Multiple sclerosis (principal); E27.40 Unspecified adrenocortical insufficiency; N30.00 Acute cystitis without hematuria
CPT/HCPCS: 36415; 72100; 80053; 81001; 83690; 84484; 85025; 93005; 96374; 96375; J1885; J2405; J7030; Z7502; Z7610

== ENCOUNTER 2017-11-09 09:11 | Emergency (ER) | END 2017-11-09 12:09 | disposition home or self-care (01) ==

== ENCOUNTER 2018-04-15 15:10 | Inpatient (IN) | END 2018-04-18 16:30 | disposition home or self-care (01) | DRG 60 ==

== ENCOUNTER 2019-01-08 10:50 | Inpatient (IN) | payer OTHER ==
[~2019-01-08] VITALS: Ht 165.1 cm; Wt 71.9 kg
[~2019-01-08 10:50] MED LIST changes: -AZIT250T6 PO; +DIME240C2 PO; -GENT5DRO28 BOTH EYES; -IBUP-1542 PO; +TRAM50TA PO
[2019-01-08 11:00] VITALS: Ht 165.1 cm; Wt 71.9 kg
[2019-01-08] MEDS ORDERED: METHYLPRED. NA SUCC 1,000 MG in DEXTROSE 5% 50 ML IVPB ONE (13:30)
--- NOTE | 2019-01-08 13:38 | ERD ---
ER Documentation Chief Complaint Chief Complaint B/L EAR PAIN , JAW PAIN , DIZZINESS X 2 WEEKS HPI This is a 33-year-old who is here for MS exacerbation, bilateral ear pain. The patient says she has had typical MS exacerbation symptoms of fatigue, right arm and leg weakness. She was having these symptoms for the past 2 days. She says she has had flareups twice since she was diagnosed last year this is exactly like prior flareups. She is also complaining of fullness to both ears but no fever. No cough dysuria no nausea vomiting diarrhea. No vertigo or headache ROS All systems reviewed and are negative except as per history of present illness. Medications Home Meds Active Scripts Tramadol Hcl* (Ultram*) 50 Mg Tablet, 50 MG PO Q6H PRN for PAIN, #20 TAB Prov:COLIN CASTRO INFORMATION SECURITY MANAGER 04/18/18 Reported Medications Dimethyl Fumarate (Tecfidera) 240 Mg Capsule.dr, 240 MG PO BID, CAP 04/15/18 Allergies Allergies: Coded Allergies: No Known Allergy (Unverified , 08/30/16) PMhx/Soc History of Surgery: No Anesthesia Reaction: No Hx Neurological Disorder: No (MS 09/2017) Hx Respiratory Disorders: No Hx Cardiac Disorders: No Hx Psychiatric Problems: Yes (ANXIETY AND DEPRESSION) Hx Miscellaneous Medical Probl: Yes (MS, anxiety, depression) Hx Alcohol Use: No Hx Substance Use: No Hx Tobacco Use: No Smoking Status: Never smoker FmHx Family History: No coronary disease Physical Exam Vitals Vital Signs Date Temp Pulse Resp B/P (MAP) Pulse Ox O2 O2 Flow FiO2 Time Delivery Rate 01/08/19 99.0 110 16 147/81 97 11:00 (103) Physical Exam Const: Well-developed, well-nourished Head: Atraumatic, normocephalic Eyes: Normal Conjunctiva, PERRLA, EOMI, normal sclera, no nystagmus ENT: Normal External Ears, Nose and Mouth, moist mucus membranes, bi lateral serous fluid behind membranes but no signs of infection. Neck: Full range of motion. No meningismus, no lymphadenopathy. Resp: Clear to auscultation bilaterally, no wheezing, rhonchi, rales Cardio: Regular rate and rhythm, no murmurs, S1 S2 present Abd: Soft, non tender x 4, non distended. Normal bowel sounds, no guarding or rebound, no pulsitile abdominal masses or bruits Skin: No petechiae or rashes, no ecchymosis , no maculopapular rash Back: No midline or flank tenderness Ext: No cyanosis, or edema, FROM x 4, normal inspection, neurovascularly intact x 4 Neur: Awake and alert, STR 5/5 x 2, right lower extremity weakness 34 out of 5, right upper extremity weakness 45 out of 5, sensation intact x 4, no focal findings, cerebellum intact Psych: Normal Mood and Affect Results 24 hrs Current Medications Medications Dose Sig/Juan Start Time Status Last (Trade) Ordered Route PRN Stop Time Admin Dose Reason Admin 50 ml @ ONCE ONCE 01/08/19 Methylprednis 100 mls/hr IVPB 13:30 01/08/19 olone Sodium 13:59 Succinate 1000 mg/Dextrose Procedures/MDM Patient is having a typical MS exacerbation. I try to get the patient to go home after getting thousand milligrams of Solu-Medrol here and come back for 2 more days through the ER however she is refusing this option and wants to be admitted to the hospital. I will draw some general labs. I do not feel the patient is having a stroke whatsoever based on her history but I will obtain some imaging Departure Diagnosis: Primary Impression: Multiple sclerosis exacerbation Additional Impression: Acute serous otitis media of both ears Recurrence: not specified as recurrent Qualified Codes: H65.03 - Acute serous otitis media, bilateral Condition: Stable MARLEN WOLFE DO Jan 08, 2019 13:38
[2019-01-08] MEDS ORDERED: DIME240C2 PO (14:04)
[2019-01-08] MEDS ORDERED: DULO60CA59 PO (14:05)
[2019-01-08] MEDS ORDERED: MAGNESIUM HYDROXIDE 30ML CUP PO PRN (15:00)
[2019-01-08] MEDS ORDERED: ONDANSETRON 4 MG INJ IV PRN ×2 (15:00)
[2019-01-08] MEDS ORDERED: NACL 0.9% 3 ML SYG IV SCH (15:00)
[2019-01-08] MEDS ORDERED: DOCUSATE SODIUM 100 MG CAP PO PRN (15:00)
[2019-01-08] MEDS ORDERED: ACETAMINOPHEN 325 MG TAB PO PRN ×2 (15:00)
[2019-01-08] MEDS ORDERED: SALINE 0.65% 45 ML NAS SPRAY NASAL PRN (16:00)
[2019-01-08 17:20] VITALS: BP 119/78; PULSE 88; RESP 18
--- NOTE | 2019-01-08 17:32 | HP ---
Date/Time of Note Date/Time of Note DATE: 01/08/19 TIME: 17:21 Assessment/Plan VTE Prophylaxis SCD applied (from Nsg): Yes Pharmacological prophylaxis: LMWH Assessment/Plan Assessment/Plan 1. MS exacerbation - Continue on IV Solumedrol for 2 more doses - MRI from outside facility reviewed - CT scan results reviewed 2. Acute rhinosinusitis - will start on claritin D and Flonase - monitor for improvement 3. h/o MS - follows with Dr. Mayr - patient plans to bring home medication for MS to be continued 4. Diet - regular 5. Disposition - Admit to med/surg for treatment of MS flair Result Diagram: 01/08/19 1331 01/08/19 1331 Results 24hrs Laboratory Tests Test 01/08/19 13:31 White Blood Count 4.0 #L Red Blood Count 4.37 Hemoglobin 13.2 Hematocrit 39.7 Mean Corpuscular Volume 90.8 Mean Corpuscular Hemoglobin 30.2 Mean Corpuscular Hemoglobin Concent 33.2 Red Cell Distribution Width 12.4 Platelet Count 282 Mean Platelet Volume 9.0 Immature Granulocytes % 0.500 H Neutrophils % 69.7 Lymphocytes % 14.7 L Monocytes % 13.4 H Eosinophils % 1.2 Basophils % 0.5 Nucleated Red Blood Cells % 0.0 Immature Granulocytes # 0.020 Neutrophils # 2.8 Lymphocytes # 0.6 L Monocytes # 0.5 Eosinophils # 0.1 Basophils # 0.0 Nucleated Red Blood Cells # 0.0 Urine Color YELLOW Urine Clarity CLEAR Urine pH 8.0 Urine Specific [place] 1.020 Urine Ketones NEGATIVE Urine Nitrite NEGATIVE Urine Bilirubin NEGATIVE Urine Urobilinogen NEGATIVE Urine Leukocyte Esterase NEGATIVE Urine Microscopic RBC 21 H Urine Microscopic WBC 7 H Urine Squamous Epithelial Cells FEW Urine Hemoglobin 1+ H Urine Glucose NEGATIVE Urine Total Protein NEGATIVE Sodium Level 141 Potassium Level 4.0 Chloride Level 102 Carbon Dioxide Level 24 Anion Gap 15 H Blood Urea Nitrogen 14 Creatinine 0.52 Est Glomerular Filtrat Rate mL/min > 60 Glucose Level 88 Calcium Level 9.5 Total Bilirubin 0.2 Direct Bilirubin 0.00 Indirect Bilirubin 0.2 Aspartate Amino Transf (AST/SGOT) 33 Alanine Aminotransferase (ALT/SGPT) 49 Alkaline Phosphatase 122 H Total Protein 8.3 H Albumin 4.7 Globulin 3.60 H Albumin/Globulin Ratio 1.30 HPI/ROS Admit Date/Time Admit Date/Time Jan 08, 2019 at 14:43 Hx of Present Illness 33 yo F with PMH MS presented with worsening right lower extremity weakness, fatigue, and difficulty lifting arms over the past 2 weeks. Patients states when she was diagnosed in 2017 she had similar symptoms. She also admits to bilateral ear congestion, jaw pain, facial pain, and congestion. She does admit to dry cough that started about 2 weeks prior to her presenting symptoms. Patient follows with Neurologist Dr. Mary and had a MRI recently which did not show any new lesions. Patient denies any chest pain, shortness of breath, nausea, vomiting, abdominal pain, dizziness, or LOC. ROS All 12 systems reviewed and pertinent positives as per HPI. All others negative. Constitutional: fatigue; No chills, No nausea Eyes: No discharge ENT: congestion, other (ear pain bilaterally, jaw pain) Respiratory: cough; No shortness of breath, No sputum, No wheezing Cardiovascular: No chest pain, No lightheadedness, No palpitations Gastrointestinal: No pain, No constipation, No diarrhea, No nausea, No vomiting Genitourinary: no complaints Musculoskeletal: no complaints Skin: No laceration, No rash Neurologic: no complaints Endocrine: no complaints Lymphatic: no complaints Psychological: nl mood/affect Immunologic: no complaints PMH/Family/Social Past Medical History Medical History: other (multiple sclerosis) Medications Current Medications Ondansetron HCl (Zofran Inj) 4 mg BRIDGE ORDER PRN IV NAUSEA/VOMITING; Start 01/08/19 at 15:00; Stop 01/09/19 at 14:59 Acetaminophen (Tylenol Tab) 650 mg ER BRIDGE PRN PO .MILD PAIN 1-3 OR TEMP; Start 01/08/19 at 15:00; Stop 01/09/19 at 14:59 Duloxetine HCl (Cymbalta) 60 mg DAILY PO ; Start 01/09/19 at 09:00 Miscellaneous Information 240 mg BID PO ; Start 01/08/19 at 21:00; Status UNV Methylprednisolone Sodium Succinate 1000 mg/Dextrose 50 ml @ 100 mls/hr DAILY IVPB ; Start 01/09/19 at 09:00; Stop 01/10/19 at 09:29 IV Flush (NS 3 ml) 3 ml PER PROTOCOL IV ; Start 01/08/19 at 15:00 Ondansetron HCl (Zofran Inj) 4 mg Q6H PRN IV NAUSEA/VOMITING; Start 01/08/19 at 15:00 Acetaminophen (Tylenol Tab) 650 mg Q6H PRN PO .PAIN 1-3 OR TEMP; Start 01/08/19 at 15:00 Acetaminophen/ Hydrocodone Bitart ([place] (5/325)) 1 tab Q6H PRN PO .MOD PAIN 4- 6; Start 01/08/19 at 15:00 Docusate Sodium (Colace) 100 mg Q12H PRN PO .CONSTIPATION; Start 01/08/19 at 15:00 Magnesium Hydroxide (Milk Of Mag) 30 ml DAILY PRN PO .CONSTIPATION; Start 01/08/19 at 15:00 Enoxaparin Sodium (Lovenox) 40 mg DAILY SC ; Start 01/09/19 at 09:00 Fluticasone Propionate (Flonase 0.05% Nasal) 1 spray BID NASAL ; Start 01/08/19 at 21:00 Sodium Chloride (Deep Sea) 2 spray Q4H PRN NASAL congestion; Start 01/08/19 at 16:00 Loratadine/ Pseudoephedrine Sulfate (Claritin-D 12 Hr) 1 tab Q12 PO ; Start 01/08/19 at 16:30 Coded Allergies: No Known Allergy (Unverified , 01/08/19) Past Surgical History Past Surgical Hx: no surgical history Family History Significant Family History: no pertinent family hx Social History Alcohol Use: none Smoking Status: Never smoker Drug Use: none Exam/Review of Systems Vital Signs Vitals Vital Signs Date Temp Pulse Resp B/P (MAP) Pulse Ox O2 O2 Flow FiO2 Time Delivery Rate 01/08/19 98.5 93 18 124/84 99 Room Air 16:21 (97) Exam Exam General: Patient is laying in bed and answers questions appropriately. no acute distress HEENT: NC/AT. EOMI, pupils reactive to light. dull tympanic membranes bilaterally. facial pain, discomfort submandibular area and post auricular Neck: Supple, midline Lungs: clear to auscultation bilaterally. no wheezing or rhonchi CVS: S1, S2, regular rate and rhythm, no obvious murmurs GI: soft, nontender, nondistended, no rebound or guarding Neurological: Right lower extremity weakness 4/5, right upper extremity weakness 4/5, no focal deficits. sensation intact Skin: No new skin lesions Additional Comments Home medications reviewed PROCEDURE: Noncontrast CT Head. CLINICAL INDICATION: Multiple sclerosis exacerbation. Right-sided we akness/paresthesias. TECHNIQUE: Noncontrast CT of the head was obtained. The administered radiation dose was CTDI vol = 40 mGy, DLP = 634 mGy-cm. DICOM images are available. One or more of the following dose reduction techniques were used: Automated exposure control, Adjustment of the mA and/or kV according to patient size, or Use of iterative reconstruction technique. COMPARISON: MRI brain with contrast 04/15/[address] brain 11/09/2017 FINDINGS: There is no acute intracranial hemorrhage, midline shift, or mass effect. The cerebral gee-white matter differentiation appears preserved. No extra-axial collection is seen. The cerebral sulci and ventricles are within normal limits in size and configuration for patient's age. The previously seen low attenuation lesion involving the left anterior parietal periventricular, deep, and juxta cortical cerebral white matter is slightly decreased in size compared to prior CT brain of 11/09/2017, compatible with nonspecific chronic gliosis (series 2, images 18 - 21). Other mild low attenuation scattered in the periventricular, deep, and juxta cortical cerebral white matter is nonspecific and stable. 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 The basilar cisterns are preserved. The brainstem and cerebellum are grossly unremarkable, although suboptimally evaluated with CT secondary to beam- hardening artifact. The 1 cm ovoid T2 hyperintense lesion visualize in the right medial cerebellar hemisphere on comparison MRI brain of 04/15/2018 is not discernible on the current study, possibly due to posterior fossa beam- hardening/streak artifact, typically seen on CT. The partially imaged orbits are unremarkable. The right frontal sinus is hypoplastic. The visualized paranasal sinuses and mastoid air cells are otherwise well-aerated. No acute calvarial fracture or suspicious osseous lesion is identified. IMPRESSION: 1. No acute intracranial hemorrhage, mass effect, extra-axial fluid collection, or evidence of large vascular territory acute transcortical infarct. If there is clinical concern for acute ischemia, MRI brain with diffusion weighted imaging may provide a more sensitive and specific evaluation. 2. Interval mild volume loss of the previously seen low attenuation lesion involving the left anterior parietal cerebral white matter, consistent with nonspecific chronic gliosis and compatible with chronic demyelinating lesion, given reported history of multiple sclerosis. Other mild low attenuation scattered in the cerebral white matter is stable compared to prior studies. 3. The 1 cm ovoid T2 hyperintense lesion visualized in the right medial cerebell ar hemisphere on comparison MRI brain of 04/15/2018 is not discernible on the current study, possibly due to posterior fossa beam-hardening artifact which is typically seen on CT. MRI brain may provide further evaluation, as clinically warranted. 4. 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 An associated vascular malformation cannot be completely excluded. Consider CTA or MRA brain for further evaluation, as clinically warranted. Further findings detailed above. RPTAT: [facility] Physician Vipin Date Time Electronically viewed and signed by Physician Vipin on 01/08/2019 16:57 EVANGELIST ESPAÑA MD Jan 08, 2019 17:32
[2019-01-08] MEDS: HYDROCODONE/APAP (5/325) TAB PO PRN (18:31)
[2019-01-08 19:51] VITALS: BP 123/78; PULSE 80; RESP 18; RESP 78
[2019-01-08] MEDS ORDERED: NON-FORMULARY/PATIENT OWN MED (Dimethyl Fumarate (Tecfidera) 240 MG) PO SCH (21:00)
[2019-01-08] MEDS: LORATADINE/PSEUDOEPHED (SR) TAB PO SCH ×2 (21:00→21:59)
[2019-01-08] MEDS: FLUTICASONE 0.05% 16 GM NAS SPRAY NASAL SCH (21:59)
[2019-01-08] MEDS ORDERED: traZODone 50 MG TAB PO ONE (22:30)
[2019-01-09 02:06] VITALS: BP_SYST 108; BP_SYST 93; BP_DIAS 53; BP_DIAS 61; PULSE 82; RESP 18
[2019-01-09] MEDS: HYDROCODONE/APAP (5/325) TAB PO PRN (07:45)
[2019-01-09 07:51] VITALS: BP 109/65; PULSE 89; RESP 18
[2019-01-09] MEDS: FLUTICASONE 0.05% 16 GM NAS SPRAY NASAL SCH ×2 (08:48→21:46)
[2019-01-09] MEDS: DULOXETINE 30 MG CAP DR PO SCH (08:49)
[2019-01-09] MEDS: LORATADINE/PSEUDOEPHED (SR) TAB PO SCH ×2 (08:49→22:52)
[2019-01-09] MEDS: ENOXAPARIN 40 MG/0.4 ML SYG SC SCH (08:50)
[2019-01-09] MEDS ORDERED: METHYLPRED. NA SUCC 1,000 MG in DEXTROSE 5% 50 ML IVPB SCH (09:00)
--- NOTE | 2019-01-09 09:01 | PN ---
Date/Time of Note Date/Time of Note DATE: 01/09/19 TIME: 09:01 Assessment/Plan VTE Prophylaxis SCD applied (from Nsg): Yes Pharmacological prophylaxis: LMWH Lines/Catheters IV Catheter Type (from Nrsg): Saline Lock Assessment/Plan Assessment/Plan 1. MS exacerbation- improving - Patient has received 2 doses of Solumedrol and feeling better. 1 more dose scheduled for tomorrow - MRI from outside facility reviewed - CT scan results reviewed 2. Acute rhinosinusitis- improving - Continue on claritin D and Flonase - monitor for improvement 3. h/o MS - follows with Dr. Mary - patient plans to bring home medication for MS to be continued 4. Diffuse joint pain - xrays hands and ankles negative for acute issues - CRP and ESR within normal limits. RF negative 5. Disposition - Last dose of solumedrol scheduled for tomorrow - If remains stable, will d/c tomorrow Result Diagram: 01/09/19 0439 01/09/19 0439 Results 24hrs Laboratory Tests Test 01/08/19 13:31 01/09/19 04:39 White Blood Count 4.0 #L 9.2 # Red Blood Count 4.37 4.38 Hemoglobin 13.2 13.3 Hematocrit 39.7 38.6 Mean Corpuscular Volume 90.8 88.1 Mean Corpuscular Hemoglobin 30.2 30.4 Mean Corpuscular Hemoglobin Concent 33.2 34.5 Red Cell Distribution Width 12.4 12.6 Platelet Count 282 289 Mean Platelet Volume 9.0 9.2 Immature Granulocytes % 0.500 H 0.300 Neutrophils % 69.7 94.1 H Lymphocytes % 14.7 L 4.8 L Monocytes % 13.4 H 0.8 Eosinophils % 1.2 0.0 Basophils % 0.5 0.0 Nucleated Red Blood Cells % 0.0 0.0 Immature Granulocytes # 0.020 0.030 Neutrophils # 2.8 8.6 H Lymphocytes # 0.6 L 0.4 L Monocytes # 0.5 0.1 L Eosinophils # 0.1 0.0 Basophils # 0.0 0.0 Nucleated Red Blood Cells # 0.0 0.0 Urine Color YELLOW Urine Clarity CLEAR Urine pH 8.0 Urine Specific [place] 1.020 Urine Ketones NEGATIVE Urine Nitrite NEGATIVE Urine Bilirubin NEGATIVE Urine Urobilinogen NEGATIVE Urine Leukocyte Esterase NEGATIVE Urine Microscopic RBC 21 H Urine Microscopic WBC 7 H Urine Squamous Epithelial Cells FEW Urine Hemoglobin 1+ H Urine Glucose NEGATIVE Urine Total Protein NEGATIVE Sodium Level 141 142 Potassium Level 4.0 4.9 Chloride Level 102 104 Carbon Dioxide Level 24 26 Anion Gap 15 H 12 Blood Urea Nitrogen 14 11 Creatinine 0.52 0.49 Est Glomerular Filtrat Rate mL/min > 60 > 60 Glucose Level 88 164 Calcium Level 9.5 10.1 Total Bilirubin 0.2 Direct Bilirubin 0.00 Indirect Bilirubin 0.2 Aspartate Amino Transf (AST/SGOT) 33 Alanine Aminotransferase (ALT/SGPT) 49 Alkaline Phosphatase 122 H Total Protein 8.3 H Albumin 4.7 Globulin 3.60 H Albumin/Globulin Ratio 1.30 Magnesium Level 2.0 Subjective 24 Hr Interval Summary Free Text/Dictation Patient states shes feeling more energetic this am but still with joint pain in hands and ankles. No acute overnight events. Exam/Review of Systems Exam Vitals Vital Signs Date Temp Pulse Resp B/P (MAP) Pulse Ox O2 O2 Flow FiO2 Time Delivery Rate 01/09/19 97.8 89 18 109/65 95 07:51 (80) 01/08/19 Room Air 17:20 Intake and Output 01/08/19 01/08/19 01/09/19 1515:00 23:00 07:00 IntakeIntake Total 50 ml BalanceBalance 50 ml Exam General: Patient is laying in bed and answers questions appropriately. no acute distress Neck: Supple, midline Lungs: clear to auscultation bilaterally. no wheezing or rhonchi CVS: S1, S2, regular rate and rhythm, no obvious murmurs GI: soft, nontender, nondistended, no rebound or guarding Neurological: Right lower extremity weakness 4/5, right upper extremity weakness 4/5, no focal deficits. sensation intact Skin: No new skin lesions Results Results 24hrs Laboratory Tests Test 01/08/19 13:31 01/09/19 04:39 White Blood Count 4.0 #L 9.2 # Red Blood Count 4.37 4.38 Hemoglobin 13.2 13.3 Hematocrit 39.7 38.6 Mean Corpuscular Volume 90.8 88.1 Mean Corpuscular Hemoglobin 30.2 30.4 Mean Corpuscular Hemoglobin Concent 33.2 34.5 Red Cell Distribution Width 12.4 12.6 Platelet Count 282 289 Mean Platelet Volume 9.0 9.2 Immature Granulocytes % 0.500 H 0.300 Neutrophils % 69.7 94.1 H Lymphocytes % 14.7 L 4.8 L Monocytes % 13.4 H 0.8 Eosinophils % 1.2 0.0 Basophils % 0.5 0.0 Nucleated Red Blood Cells % 0.0 0.0 Immature Granulocytes # 0.020 0.030 Neutrophils # 2.8 8.6 H Lymphocytes # 0.6 L 0.4 L Monocytes # 0.5 0.1 L Eosinophils # 0.1 0.0 Basophils # 0.0 0.0 Nucleated Red Blood Cells # 0.0 0.0 Urine Color YELLOW Urine Clarity CLEAR Urine pH 8.0 Urine Specific [place] 1.020 Urine Ketones NEGATIVE Urine Nitrite NEGATIVE Urine Bilirubin NEGATIVE Urine Urobilinogen NEGATIVE Urine Leukocyte Esterase NEGATIVE Urine Microscopic RBC 21 H Urine Microscopic WBC 7 H Urine Squamous Epithelial Cells FEW Urine Hemoglobin 1+ H Urine Glucose NEGATIVE Urine Total Protein NEGATIVE Sodium Level 141 142 Potassium Level 4.0 4.9 Chloride Level 102 104 Carbon Dioxide Level 24 26 Anion Gap 15 H 12 Blood Urea Nitrogen 14 11 Creatinine 0.52 0.49 Est Glomerular Filtrat Rate mL/min > 60 > 60 Glucose Level 88 164 Calcium Level 9.5 10.1 Total Bilirubin 0.2 Direct Bilirubin 0.00 Indirect Bilirubin 0.2 Aspartate Amino Transf (AST/SGOT) 33 Alanine Aminotransferase (ALT/SGPT) 49 Alkaline Phosphatase 122 H Total Protein 8.3 H Albumin 4.7 Globulin 3.60 H Albumin/Globulin Ratio 1.30 Magnesium Level 2.0 Medications Medication Current Medications Ondansetron HCl (Zofran Inj) 4 mg BRIDGE ORDER PRN IV NAUSEA/VOMITING; Start 01/08/19 at 15:00; Stop 01/09/19 at 14:59 Duloxetine HCl (Cymbalta) 60 mg DAILY PO Last administered on 01/09/19at 08:49; Admin Dose 60 MG; Start 01/09/19 at 09:00 Miscellaneous Information 240 mg BID PO ; Start 01/08/19 at 21:00; Status UNV Methylprednisolone Sodium Succinate 1000 mg/Dextrose 50 ml @ 100 mls/hr DAILY IVPB ; Start 01/09/19 at 09:00; Stop 01/10/19 at 09:29 IV Flush (NS 3 ml) 3 ml PER PROTOCOL IV ; Start 01/08/19 at 15:00 Ondansetron HCl (Zofran Inj) 4 mg Q6H PRN IV NAUSEA/VOMITING; Start 01/08/19 at 15:00 Acetaminophen (Tylenol Tab) 650 mg Q6H PRN PO .PAIN 1-3 OR TEMP; Start 01/08/19 at 15:00 Acetaminophen/ Hydrocodone Bitart ([place] (5/325)) 1 tab Q6H PRN PO .MOD PAIN 4- 6 Last administered on 01/09/19at 07:45; Admin Dose 1 TAB; Start 01/08/19 at 15:00 Docusate Sodium (Colace) 100 mg Q12H PRN PO .CONSTIPATION; Start 01/08/19 at 15:00 Magnesium Hydroxide (Milk Of Mag) 30 ml DAILY PRN PO .CONSTIPATION; Start 01/08/19 at 15:00 Enoxaparin Sodium (Lovenox) 40 mg DAILY SC ; Start 01/09/19 at 09:00 Fluticasone Propionate (Flonase 0.05% Nasal) 1 spray BID NASAL Last administered on 01/09/19at 08:48; Admin Dose 1 SPRAY; Start 01/08/19 at 21:00 Sodium Chloride ([place] Sea) 2 spray Q4H PRN NASAL congestion; Start 01/08/19 at 16:00 Loratadine/ Pseudoephedrine Sulfate (Claritin-D 12 Hr) 1 tab Q12 PO Last administered on 01/09/19at 08:49; Admin Dose 1 TAB; Start 01/08/19 at 16:30 EVANGELIST ESPAÑA MD Jan 09, 2019 09:01
[2019-01-09] MEDS ORDERED: traZODone 50 MG TAB PO PRN (11:00)
[2019-01-09 14:43] VITALS: BP 124/67; PULSE 120; RESP 18
[2019-01-09] MEDS ORDERED: PSYLLIUM 28% PACKET PO SCH (17:00)
[2019-01-09] MEDS ORDERED: PSYLLIUM 28% PACKET PO PRN (17:00)
[2019-01-09 19:35] VITALS: BP 123/73; PULSE 106; RESP 20
[2019-01-10 02:05] VITALS: BP 115/71; PULSE 95; RESP 20
[2019-01-10 07:50] VITALS: BP 104/58; RESP 18
[2019-01-10] MEDS: ENOXAPARIN 40 MG/0.4 ML SYG SC SCH (09:00)
[2019-01-10] MEDS: LORATADINE/PSEUDOEPHED (SR) TAB PO SCH ×2 (09:06→21:09)
[2019-01-10] MEDS: DULOXETINE 30 MG CAP DR PO SCH (09:06)
[2019-01-10] MEDS: FLUTICASONE 0.05% 16 GM NAS SPRAY NASAL SCH ×2 (09:06→21:09)
--- NOTE | 2019-01-10 09:13 | PN ---
Date/Time of Note Date/Time of Note DATE: 01/10/19 TIME: 09:13 Assessment/Plan VTE Prophylaxis Risk score (from Ns)>0 risk: 1 SCD applied (from Ns): Yes Pharmacological prophylaxis: NA/contraindicated Pharm contraindication: low risk/ambulating Lines/Catheters IV Catheter Type (from Nrsg): Saline Lock Assessment/Plan Assessment/Plan 1. MS exacerbation- improving - Patient has received 3 doses of Solumedrol and will continue on 10 day PO taper - MRI from outside facility reviewed - CT scan results reviewed 2. Acute rhinosinusitis- improving - Continue on Claritin D and Flonase - monitor for improvement 3. h/o MS - follows with Dr. Mary 4. Diffuse joint pain - xrays hands and ankles negative for acute issues - CRP and ESR within normal limits. CONSUELO and RF negative 5. Fatigue - discussed may be from MS medications - B12, Iron, Vit D levels all within normal limits 6. Disposition - Last dose of IV solumedrol today and will monitor for continued improvement. If no acute issues, will d/c tomorrow Result Diagram: 01/09/19 0439 01/09/19 0439 Results 24hrs Laboratory Tests Test 01/09/19 11:00 01/09/19 11:03 Vitamin B12 Level 421 Vitamin D 1,25-Dihydroxy 39.0 Erythrocyte Sedimentation Rate 15 C-Reactive Protein < 0.5 Rheumatoid Factor Screen NEGATIVE Subjective 24 Hr Interval Summary Free Text/Dictation Patient states shes feeling better but still with fatigue and joint discomfort. Exam/Review of Systems Exam Vitals Vital Signs Date Temp Pulse Resp B/P (MAP) Pulse Ox O2 O2 Flow FiO2 Time Delivery Rate 01/10/19 98.8 18 104/58 94 07:50 (73) 01/10/19 95 Room Air 02:05 Intake and Output 01/09/19 01/09/19 01/10/19 1515:00 23:00 07:00 IntakeIntake Total 250 ml 240 ml 840 ml BalanceBalance 250 ml 240 ml 840 ml Exam General: Patient is laying in bed and answers questions appropriately. no acute distress Lungs: clear to auscultation bilaterally. no wheezing or rhonchi CVS: S1, S2, regular rate and rhythm, no obvious murmurs GI: soft, nontender, nondistended, no rebound or guarding Neurological: Right lower extremity weakness 4/5, right upper extremity weakness 4/5, no focal deficits. sensation intact Skin: No new skin lesions Results Results 24hrs Laboratory Tests Test 01/09/19 11:00 01/09/19 11:03 Vitamin B12 Level 421 Vitamin D 1,25-Dihydroxy 39.0 Erythrocyte Sedimentation Rate 15 C-Reactive Protein < 0.5 Rheumatoid Factor Screen NEGATIVE Medications Medication Current Medications Duloxetine HCl (Cymbalta) 60 mg DAILY PO Last administered on 01/10/19at 09:06; Admin Dose 60 MG; Start 01/09/19 at 09:00 Miscellaneous Information 240 mg BID PO ; Start 01/08/19 at 21:00; Status UNV IV Flush (NS 3 ml) 3 ml PER PROTOCOL IV ; Start 01/08/19 at 15:00 Ondansetron HCl (Zofran Inj) 4 mg Q6H PRN IV NAUSEA/VOMITING; Start 01/08/19 at 15:00 Acetaminophen (Tylenol Tab) 650 mg Q6H PRN PO .PAIN 1-3 OR TEMP; Start 01/08/19 at 15:00 Acetaminophen/ Hydrocodone Bitart ([place] (5/325)) 1 tab Q6H PRN PO .MOD PAIN 4- 6 Last administered on 01/09/19at 07:45; Admin Dose 1 TAB; Start 01/08/19 at 15:00 Docusate Sodium (Colace) 100 mg Q12H PRN PO .CONSTIPATION; Start 01/08/19 at 15:00 Magnesium Hydroxide (Milk Of Mag) 30 ml DAILY PRN PO .CONSTIPATION; Start 01/08/19 at 15:00 Enoxaparin Sodium (Lovenox) 40 mg DAILY SC ; Start 01/09/19 at 09:00 Fluticasone Propionate (Flonase 0.05% Nasal) 1 spray BID NASAL Last administered on 01/10/19at 09:06; Admin Dose 1 SPRAY; Start 01/08/19 at 21:00 Sodium Chloride ([place]) 2 spray Q4H PRN NASAL congestion; Start 01/08/19 at 16:00 Loratadine/ Pseudoephedrine Sulfate (Claritin-D 12 Hr) 1 tab Q12 PO Last administered on 01/10/19at 09:06; Admin Dose 1 TAB; Start 01/08/19 at 16:30 Trazodone HCl (Desyrel) 50 mg HS PRN PO insomnia Last administered on 01/09/19 22:52; Admin Dose 50 MG; Start 01/09/19 at 11:00 Psyllium Hydrophilic Mucilloid (Metamucil) 1 pkt BID PRN PO constipation Last administered on 01/09/19 18:08; Admin Dose 1 PKT; Start 01/09/19 at 17:00 EVANGELIST ESPAÑA MD Jan 10, 2019 09:13
[2019-01-10] MEDS ORDERED: CYANOCOBALAMIN 1000 MCG INJ IM ONE (11:00)
[2019-01-10] MEDS ORDERED: METHYLPRED. NA SUCC 1,000 MG in DEXTROSE 5% 50 ML IVPB ONE (11:00)
[2019-01-10 14:57] VITALS: BP 113/78; PULSE 81; RESP 18
[2019-01-10 19:30] VITALS: BP 114/68; PULSE 89; RESP 20
[2019-01-10] MEDS: HYDROCODONE/APAP (5/325) TAB PO PRN (23:22)
[2019-01-11 02:55] VITALS: BP 118/7; PULSE 72; RESP 20
[2019-01-11 08:00] VITALS: BP 122/78; PULSE 74; RESP 18
--- NOTE | 2019-01-11 08:58 | PN ---
Date/Time of Note Date/Time of Note DATE: 01/11/19 TIME: 08:58 Assessment/Plan VTE Prophylaxis Risk score (from Ns)>0 risk: 0 SCD applied (from Ns): Yes Pharmacological prophylaxis: NA/contraindicated Pharm contraindication: low risk/ambulating Lines/Catheters IV Catheter Type (from Nrsg): Saline Lock Assessment/Plan Assessment/Plan 1. MS exacerbation- improving - Patient has received 3 doses of Solumedrol and will continue on PO taper - MRI from outside facility reviewed - CT scan results reviewed 2. Acute rhinosinusitis- improving - Continue on Claritin D and Flonase - monitor for improvement 3. h/o MS - follows with Dr. Mary 4. Diffuse joint pain - xrays hands and ankles negative for acute issues - CRP and ESR within normal limits. CONSUELO and RF negative 5. Fatigue - discussed may be from MS medications - B12, Iron, Vit D levels all within normal limits 6. Disposition - Medically stable for discharge home Result Diagram: 01/09/19 0439 01/09/19 0439 Results 24hrs Laboratory Tests Test 01/10/19 10:30 01/10/19 12:27 Urine Color YELLOW Urine Clarity CLOUDY A Urine pH 5.0 Urine Specific [place] 1.031 H Urine Ketones NEGATIVE Urine Nitrite NEGATIVE Urine Bilirubin NEGATIVE Urine Urobilinogen NEGATIVE Urine Leukocyte Esterase 2+ H Urine Microscopic RBC 9 H Urine Microscopic WBC 24 H Urine Squamous Epithelial Cells MODERATE Urine Bacteria FEW A Urine Mucus MANY A Urine Hemoglobin 1+ H Urine Glucose NEGATIVE Urine Total Protein NEGATIVE Iron Level 100 Total Iron Binding Capacity 344 Percent Iron Saturation 29 Thyroid Stimulating Hormone (TSH) 1.630 Subjective 24 Hr Interval Summary Free Text/Dictation Patient still with generalized weakness and pain in joints. Discussed lab results being all negative. Still with burning with urination and UA results discussed as well. Exam/Review of Systems Exam Vitals Vital Signs Date Temp Pulse Resp B/P (MAP) Pulse Ox O2 O2 Flow FiO2 Time Delivery Rate 01/11/19 98.3 74 18 122/78 94 Room Air 08:00 (93) Intake and Output 01/10/19 01/10/19 01/11/19 1515:00 23:00 07:00 IntakeIntake Total 450 ml 200 ml BalanceBalance 450 ml 200 ml Exam General: Patient is laying in bed and answers questions appropriately. no acute distress Lungs: clear to auscultation bilaterally. no wheezing or rhonchi CVS: S1, S2, regular rate and rhythm, no obvious murmurs GI: soft, nontender, nondistended, no rebound or guarding Neurological: Right lower extremity weakness 4/5, right upper extremity weakness 4/5, no focal deficits. sensation intact Skin: No new skin lesions Results Results 24hrs Laboratory Tests Test 01/10/19 10:30 01/10/19 12:27 Urine Color YELLOW Urine Clarity CLOUDY A Urine pH 5.0 Urine Specific [place] 1.031 H Urine Ketones NEGATIVE Urine Nitrite NEGATIVE Urine Bilirubin NEGATIVE Urine Urobilinogen NEGATIVE Urine Leukocyte Esterase 2+ H Urine Microscopic RBC 9 H Urine Microscopic WBC 24 H Urine Squamous Epithelial Cells MODERATE Urine Bacteria FEW A Urine Mucus MANY A Urine Hemoglobin 1+ H Urine Glucose NEGATIVE Urine Total Protein NEGATIVE Iron Level 100 Total Iron Binding Capacity 344 Percent Iron Saturation 29 Thyroid Stimulating Hormone (TSH) 1.630 Medications Medication Current Medications Duloxetine HCl (Cymbalta) 60 mg DAILY PO Last administered on 01/10/19at 09:06; Admin Dose 60 MG; Start 01/09/19 at 09:00 Miscellaneous Information 240 mg BID PO ; Start 01/08/19 at 21:00; Status UNV IV Flush (NS 3 ml) 3 ml PER PROTOCOL IV ; Start 01/08/19 at 15:00 Ondansetron HCl (Zofran Inj) 4 mg Q6H PRN IV NAUSEA/VOMITING; Start 01/08/19 at 15:00 Acetaminophen (Tylenol Tab) 650 mg Q6H PRN PO .PAIN 1-3 OR TEMP; Start 01/08/19 at 15:00 Acetaminophen/ Hydrocodone Bitart ([place] (5/325)) 1 tab Q6H PRN PO .MOD PAIN 4- 6 Last administered on 01/10/19at 23:22; Admin Dose 1 TAB; Start 01/08/19 at 15:00 Docusate Sodium (Colace) 100 mg Q12H PRN PO .CONSTIPATION; Start 01/08/19 at 15:00 Magnesium Hydroxide (Milk Of Mag) 30 ml DAILY PRN PO .CONSTIPATION; Start 01/08/19 at 15:00 Enoxaparin Sodium (Lovenox) 40 mg DAILY SC ; Start 01/09/19 at 09:00 Fluticasone Propionate (Flonase 0.05% Nasal) 1 spray BID NASAL Last administered on 01/10/19 21:09; Admin Dose 1 SPRAY; Start 01/08/19 at 21:00 Sodium Chloride ([place]) 2 spray Q4H PRN NASAL congestion; Start 01/08/19 at 16:00 Loratadine/ Pseudoephedrine Sulfate (Claritin-D 12 Hr) 1 tab Q12 PO Last administered on 01/10/19 21:09; Admin Dose 1 TAB; Start 01/08/19 at 16:30 Trazodone HCl (Desyrel) 50 mg HS PRN PO insomnia Last administered on 01/09/19 22:52; Admin Dose 50 MG; Start 01/09/19 at 11:00 Psyllium Hydrophilic Mucilloid (Metamucil) 1 pkt BID PRN PO constipation Last administered on 01/09/19 18:08; Admin Dose 1 PKT; Start 01/09/19 at 17:00 Prednisone (Prednisone) 50 mg DAILY PO ; Start 01/11/19 at 09:00 Miscellaneous Information (*Order Clarification Bulletin) MEDICATION REQUIRES CLARIFICATI... Q8H XX ; Start 01/11/19 at 08:00 EVANGELIST ESPAÑA MD Jan 11, 2019 08:58
[2019-01-11] MEDS: ENOXAPARIN 40 MG/0.4 ML SYG SC SCH (09:00)
[2019-01-11] MEDS ORDERED: predniSONE 50 MG TAB PO SCH (09:00)
[2019-01-11] MEDS: FLUTICASONE 0.05% 16 GM NAS SPRAY NASAL SCH (09:10)
[2019-01-11] MEDS: DULOXETINE 30 MG CAP DR PO SCH (09:11)
[2019-01-11] MEDS: LORATADINE/PSEUDOEPHED (SR) TAB PO SCH (09:11)
[2019-01-11] MEDS ORDERED: TRA50 PO (11:52)
[2019-01-11] MEDS ORDERED: PRED10TA PO (11:52)
[2019-01-11] MEDS ORDERED: FLUT16SP17 NASAL (11:52)
[2019-01-11] MEDS ORDERED: LORA1TAB PO (11:52)
--- NOTE | 2019-01-11 11:57 | PDOCDIS ---
Discharge Instructions DIAGNOSIS Discharge Diagnosis 1. MS exacerbation- resolving 2. Acute rhinosinusitis- improving 3. h/o MS 4. Diffuse joint pain 5. Fatigue CONDITION [id number] Patient Condition: [id number] Stable HOME CARE INSTRUCTIONS: [id number] Diet Instructions: [id number] Regular ACTIVITY: [id number] Activity Restrictions: [id number] Slowly Increase Activity Rest between Activity FOLLOW UP/APPOINTMENTS Follow-up Plan 1. Follow up with your regular physician in 1 week 2. Follow up with Dr. Mary in 1-2 weeks 3. Continue steroid taper as follows: 50mg for 1 days (start tomorrow 01/12/19) then 40mg for 2 days then 30mg for 2 days then 20mg for 2 days then 10mg for 2 days then stop 4. Take Claritin D and Flonase as needed for congestion and allergy symptoms 5. Take Trazodone as needed for help with sleeping 6. Increase physical activity as tolerated and try swimming if possible 7. If you experience any concerning symptoms, please go to your nearest emergency department EVANGELIST ESPAÑA MD Jan 11, 2019 11:57
--- NOTE | 2019-01-11 17:03 | DS ---
Date/Time of Note Date/Time of Note DATE: 01/11/19 TIME: 17:00 Discharge Summary Admission/Discharge Info Admit Date/Time Jan 08, 2019 at 14:43 Discharge Date/Time Jan 11, 2019 at 14:20 Discharge Diagnosis 1. MS exacerbation- resolving 2. Acute rhinosinusitis- improving 3. h/o MS 4. Diffuse joint pain 5. Fatigue Patient Condition: Stable Procedures PROCEDURE: Bilateral hand x-ray CLINICAL INDICATION: Joint pain TECHNIQUE: AP, lateral and oblique views of the bilateral hands were obtained. COMPARISON: None FINDINGS: There is normal mineralization. No acute fracture or dislocation is seen. There are no significant degenerative changes. There is no significant soft tissue swelling. IMPRESSION: No significant abnormality of the bilateral hands. RPTAT: XX Jessy Coreas, Physician Date Time Electronically viewed and signed by Physician Abigail on 01/09/2019 14:58 PROCEDURE: Bilateral ankle x-ray CLINICAL INDICATION: Joint pain TECHNIQUE: AP and lateral views of the bilateral ankles were obtained. COMPARISON: None FINDINGS: There is normal mineralization. No acute fracture or dislocation is seen. There are no significant degenerative changes. There is no significant soft tissue swelling. Small bilateral plantar calcaneal spurs. IMPRESSION: No significant abnormality of the bilateral ankles. RPTAT: XX Jessy Coreas, Physician Date Time Electronically viewed and signed by Physician Abigail on 01/09/2019 14:58 PROCEDURE: Noncontrast CT Head. CLINICAL INDICATION: Multiple sclerosis exacerbation. Right-sided weaknes s/paresthesias. TECHNIQUE: Noncontrast CT of the head was obtained. The administered radiation dose was CTDI vol = 40 mGy, DLP = 634 mGy-cm. DICOM images are available. One or more of the following dose reduction techniques were used: Automated exposure control, Adjustment of the mA and/or kV according to patient size, or Use of iterative reconstruction technique. COMPARISON: MRI brain with contrast 04/15/[address] brain 11/09/2017 FINDINGS: There is no acute intracranial hemorrhage, midline shift, or mass effect. The cerebral gee-white matter differentiation appears preserved. No extra-axial collection is seen. The cerebral sulci and ventricles are within normal limits in size and configuration for patient's age. The previously seen low attenuation lesion involving the left anterior parietal periventricular, deep, and juxta cortical cerebral white matter is slightly decreased in size compared to prior CT brain of 11/09/2017, compatible with nonspecific chronic gliosis (series 2, images 18 - 21). Other mild low attenuation scattered in the periventricular, deep, and juxta cortical cerebral white matter is nonspecific and stable. 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 The basilar cisterns are preserved. The brainstem and cerebellum are grossly unr emarkable, although suboptimally evaluated with CT secondary to beam-hardening artifact. The 1 cm ovoid T2 hyperintense lesion visualize in the right medial cerebellar hemisphere on comparison MRI brain of 04/15/2018 is not discernible on the current study, possibly due to posterior fossa beam-hardening/streak artifact, typically seen on CT. The partially imaged orbits are unremarkable. The right frontal sinus is hypoplastic. The visualized paranasal sinuses and mastoid air cells are otherwise well-aerated. No acute calvarial fracture or suspicious osseous lesion is identified. IMPRESSION: 1. No acute intracranial hemorrhage, mass effect, extra-axial fluid collection, or evidence of large vascular territory acute transcortical infarct. If there is clinical concern for acute ischemia, MRI brain with diffusion weighted imaging may provide a more sensitive and specific evaluation. 2. Interval mild volume loss of the previously seen low attenuation lesion involving the left anterior parietal cerebral white matter, consistent with nonspecific chronic gliosis and compatible with chronic demyelinating lesion, given reported history of multiple sclerosis. Other mild low attenuation scattered in the cerebral white matter is stable compared to prior studies. 3. The 1 cm ovoid T2 hyperintense lesion visualized in the right medial cerebellar hemisphere on comparison MRI brain of 04/15/2018 is not discernible on the current study, possibly due to posterior fossa beam-hardening artifact which is typically seen on CT. MRI brain may provide further evaluation, as clinically warranted. 4. 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 An associated vascular malformation cannot be completely excluded. Consider CTA or MRA brain for further evaluation, as clinically warranted. Further findings detailed above. RPTAT: [facility] Physician Vpiin Date Time Electronically viewed and signed by Spencer Schaeffer Physician on 01/08/2019 16:57 Hx of Present Illness 33 yo F with PMH MS presented with worsening right lower extremity weakness, fatigue, and difficulty lifting arms over the past 2 weeks. Patients states when she was diagnosed in 2017 she had similar symptoms. She also admits to bilateral ear congestion, jaw pain, facial pain, and congestion. She does admit to dry cough that started about 2 weeks prior to her presenting symptoms. Patient follows with Neurologist Dr. Mary and had a MRI recently which did not show any new lesions. Patient denies any chest pain, shortness of breath, nausea, vomiting, abdominal pain, dizziness, or LOC. Hospital Course Patient was admitted for MS exacerbation and started on high dose solumedrol for 3 doses. Patient felt better every day with steroids but was still complaining of diffuse joint pain and fatigue. She was worked up for rheumatological issues with CRP, ESR, CONSUELO, and RF negative. Iron levels, B12, TSH, and Vit D levels were checked as well and within normal limits. Xrays of hands and ankles were performed due to patients request and were negative for acute abnormalities. Patient was continued on PO steroid taper and presenting symptoms improved significantly. She progressed well with physical therapy and was discharged home in good condition. Vitals and physical exam were stable on day of discharge. Home Meds Active Scripts Prednisone (Prednisone) 10 Mg Tab, 10 MG PO DAILY for 9 Days, #25 TAB 50mg for 1 days, 40mg for 2 days, 30mg for 2 days, 20mg for 2 days then 10mg for 2 days Prov:EVANGELIST ESPAÑA MD 01/11/19 Fluticasone Propionate* (Fluticasone Propionate* Nasal) 50 Mcg/[place] - 16 Gm [place].susp, 1 SPRAY NASAL BID for 30 Days, #1 BOT 6 Refills Prov:EVANGELIST ESPAÑA MD 01/11/19 Trazodone Hcl* (Desyrel*) 50 Mg Tablet, 50 MG PO HS PRN for insomnia for 30 Days, #30 TAB 6 Refills Prov:EVANGELIST ESPAÑA MD 01/11/19 Loratadine/Pseudoephedrine (Alavert D-12 Allergy-Sinus Tab) 1 Each Tab.er.12h, 1 TAB PO Q12 for 7 Days, #14 TAB 6 Refills Prov:EVANGELIST ESPAÑA MD 01/11/19 Reported Medications Duloxetine Hcl* (Duloxetine Hcl*) 60 Mg Capsule.dr, 60 MG PO DAILY, #30 CAP 01/08/19 Dimethyl Fumarate (Tecfidera) 240 Mg Capsule.dr, 240 MG PO BID, CAP 01/08/19 Discontinued Reported Medications Dimethyl Fumarate (Tecfidera) 240 Mg Capsule.dr, 240 MG PO BID, CAP 04/15/18 Discontinued Scripts Tramadol Hcl* (Ultram*) 50 Mg Tablet, 50 MG PO Q6H PRN for PAIN, #20 TAB Prov:COLIN CASTRO NP 04/18/18 Follow-up Plan 1. Follow up with your regular physician in 1 week 2. Follow up with Dr. Mary in 1-2 weeks 3. Continue steroid taper as follows: 50mg for 1 days (start tomorrow 01/12/19) then 40mg for 2 days then 30mg for 2 days then 20mg for 2 days then 10mg for 2 days then stop 4. Take Claritin D and Flonase as needed for congestion and allergy symptoms 5. Take Trazodone as needed for help with sleeping 6. Increase physical activity as tolerated and try swimming if possible 7. If you experience any concerning symptoms, please go to your nearest emergency department Primary Care Provider Yaquelin Blount DO Time spent on discharge: > 30 minutes EVANGELIST ESPAÑA MD Jan 11, 2019 17:03
== END 2019-01-11 14:20 | disposition home or self-care (01) | DRG 60 ==
LOC: E/R 10:50 → MS1 14:43
PROVIDERS: ADMIT Internal Medicine; ATTEND Internal Medicine
DX: G35 Multiple sclerosis (principal); J01.90 Acute sinusitis, unspecified; F41.9 Anxiety disorder, unspecified; F32.9 Major depressive disorder, single episode, unspecified
CPT/HCPCS: 70450; 73130; 80048; 80053; 81001; 82306; 82607; 82652; 83540; 83735; 84443; 85025; 85651; 86038; 86140; 86430; 96374; 97110; 97116; 97161; 97166; 97530; J1650; J2930; J3420; J7512